=== PATIENT | female | born 1995 | race Caucasian/White ===

== ENCOUNTER 2018-10-11 20:39 | Emergency (ER) | payer BC, MEDICAID ==
[2018-10-11 20:44] VITALS: BP 110/72
--- NOTE | 2018-10-11 21:09 | EDM.PDOC ---
ED HPI GENERAL MEDICAL PROBLEM - General Chief Complaint: General Stated Complaint: POSS SEIZURE Time Seen by Provider: 10/11/18 20:49 Source of Information: Reports: Patient, RN Notes Reviewed History Limitations: Reports: No Limitations - History of Present Illness INITIAL COMMENTS - FREE TEXT/NARRATIVE: Medical records indicate that the patient is seen at the [facility] frequently , including, most recently, this past 10/08/2018, when she presented for vague abdominal pain. Her vitals were normal. Her abdomen was nontender on exam. Her WBC count was mildly elevated at 11.59, although a manual differential was not performed. Her CMP was normal. Her lipase was normal at 81. A urinalysis was contaminated, although interpreted as a UTI. CT of the abdomen and pelvis found a small amount of lymphadenopathy, possibly consistent with mesenteric adenitis, along with a few air-fluid levels. The patient was given 1 L of IV fluid, 30 mg of Toradol, and discharged home with a prescription for oral Keflex that the patient states she did not fill. The patient now presents to our ED stating that she developed lower abdominal cramps around 08:00. She states it feels like she is about to get her menstrual period. She then developed cramps in her chest around 20:30, and started shaking. She did not lose consciousness, but her boyfriend thought that she might of been having a seizure. The patient recalls her boyfriend and another friend talking to her and holding her. Symptoms lasted for about 10-15 minutes, and the patient showed no postictal symptoms. She states that she has had similar symptoms, every other month prior to getting her menstrual period since 2011 through 2012, although she still has the abdominal and chest cramps whenever she is about to get her menstrual period. The patient's PCP is at [facility] in [place]. 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: 1 Psychiatric History: Reports: Depression, PTSD Endocrine/Metabolic History: Reports: Hypothyroidism, Obesity/BMI 30+, Other ( See Below) (Prediabetes) Dermatologic History: Reports: Eczema - Past Surgical History HEENT Surgical History: Reports: Adenoidectomy, Tonsillectomy Cardiovascular Surgical History: Reports: Other (See Below) (VSD repair at 5 months old) Female Surgical History: Reports: Section (x 1), Other (See Below) ( Left salpingectomy) Social & Family History - Family History Family Medical History: Noncontributory HEENT: Reports: Glaucoma Cardiac: Reports: Heart Failure, Hypertension Respiratory: Reports: Asthma, COPD OBGYN: Reports: Other OBGYN Family History: mother had preeclampsia Neurological: Reports: CVA, Migraines Endocrine/Metabolic: Reports: Diabetes, type II, Hypothyroidism Oncologic: Reports: Breast - Tobacco Use Smoking Status *Q: Former Smoker Years of Tobacco use: 1 Packs/Tins Daily: 0.2 Month/Year Tobacco Last Used: Quit 2017 - Caffeine Use Caffeine Use: Reports: Coffee, Soda Caffeine Use Comment: rare - Alcohol Use Alcohol Use History: Yes Alcohol Use Frequency: Rarely - Recreational Drug Use Recreational Drug Use: Yes Drug Use in Last 12 Months: Yes Recreational Drug Type: Reports: Marijuana/Hashish (last smoked Mar 2018), Methamphetamine (last smoked 06/03/2016) Other Recreational Drug Type: in past about 1 yr 5 months-meth and marijuana. - Living Situation & Occupation Living situation: Reports: Single, Other (with friends) Occupation: Unemployed ED ROS GENERAL - Review of Systems Review Of Systems: ROS reveals no pertinent complaints other than HPI. ED EXAM, GENERAL - Physical Exam Exam: See Below Exam Limited By: No Limitations General Appearance: Alert, WD/WN, No Apparent Distress Eye Exam: Bilateral Eye: EOMI, Normal Inspection Ears: Normal External Exam, Hearing Grossly Normal Nose: Normal Inspection Throat/Mouth: Normal Inspection, Normal Lips, Normal Voice, No Airway Compromise Head: Atraumatic, Normocephalic Neck: Normal Inspection, Full Range of Motion Respiratory/Chest: No Respiratory Distress, Lungs Clear, Normal Breath Sounds, No Accessory Muscle Use Cardiovascular: Normal Peripheral Pulses, Regular Rate, Rhythm, No Gallop, No JVD, No Murmur, No Rub Peripheral Pulses: 4+: Radial (L), Radial (R) GI/Abdominal: Normal Bowel Sounds, Soft, Non-Tender, No Organomegaly, No Distention, No Abnormal Bruit, No Mass, Other (Obese) (Female) Exam: Deferred Rectal (Female) Exam: Deferred Back Exam: Normal Inspection, Full Range of Motion, NT Extremities: Normal Inspection, Normal Range of Motion, Non-Tender, Normal Capillary Refill, No Pedal Edema Neurological: Alert, Oriented, CN II-XII Intact, Normal Cognition, No Motor/ Sensory Deficits Psychiatric: Normal Affect Skin Exam: Warm, Dry, Intact, Normal Color, No Rash Course - Vital Signs Last Recorded V/S: Last Vital Signs Temp 36.5 C 10/11/18 20:43 Pulse 91 10/11/18 20:43 Resp 20 10/11/18 20:43 BP 110/72 10/11/18 20:43 Pulse Ox 98 10/11/18 20:43 Orthostatic Blood Pressure [ 121/77 Standing] Orthostatic Blood Pressure [ 118/84 Sitting] Orthostatic Blood Pressure [ 114/76 Supine] - Orders/Labs/Meds Orders: Active Orders 24 hr Category Date Time Status Orthostatic Vital Signs [RC] STAT Care 10/11/18 21:07 Active Labs: Laboratory Tests 10/11/18 10/11/18 Range/Units 21:24 21:24 Urine Color Dark yellow (Yellow) Urine Appearance Clear (Clear) Urine pH 6.5 (5.0-8.0) Ur Specific [place] > or = 1.030 (1.005-1.030) Urine Protein Trace H (Negative) Urine Glucose (UA) Negative (Negative) Urine Ketones Negative (Negative) Urine Occult Blood Trace-intact H (Negative) Urine Nitrite Negative (Negative) Urine Bilirubin Negative (Negative) Urine Urobilinogen 0.2 (0.2-1.0) Ur Leukocyte Esterase Negative (Negative) Urine RBC 0-5 (0-5) /hpf Urine WBC 0-5 (0-5) /hpf Ur Epithelial Cells 0-5 (0-5) /hpf Urine Bacteria Few (FEW) /hpf Hyaline Casts 0-5 (0-5) /lpf Urine Mucus Many H (FEW) /hpf Urine HCG, Qual Negative (NEGATIVE) - Re-Assessments/Exams Free Text/Narrative Re-Assessment/Exam: 10/11/18 21:08 Clearly, the patient did not suffer a seizure - she was awake and aware the entire time. For today's purposes, I have ordered orthostatics, to make sure that the symptoms that she experienced are not related to intravascular depletion, and since the urine sample from [place] on 10/08/2018 was contaminated, a UTI could not have been properly diagnosed, therefore I have ordered a urinalysis with a urine test. 10/11/18 21:25 The patient is not orthostatic. 10/11/18 22:44 Test results discussed with the patient and her boyfriend. The patient's urinalysis is clean - she does not have a urinary tract infection, and her urine test is negative. I explained that the patient's history is NOT consistent with that of a seizure, and if she gets these symptoms preceding a menstrual period, then it probably means that she is about to have her menstrual period. The patient asked what she can take for her pain, stating that she took 2 Aleve earlier tonight, then another Aleve an hour later = 3 Aleve within 2 hours I explained, and that her pain is getting worse. I explained that her pain is likely due to menstrual cramps, and that NSAIDs are recommended, however, not in the dose that she is taking. I explained that under the circumstances, I cannot prescribe opioid. Departure - Departure Time of Disposition: 22:45 Disposition: Home, Self-Care 01 Condition: Good Clinical Impression: Premenstrual symptom - Discharge Information *PRESCRIPTION DRUG MONITORING PROGRAM REVIEWED*: Not Applicable *COPY OF PRESCRIPTION DRUG MONITORING REPORT IN PATIENT CONRADO: Not Applicable Referrals: PCP,Not In Area [Primary Care Provider] - Forms: ED Department Discharge Additional Instructions: You were seen in the emergency room after developing lower abdominal cramps, followed by chest cramps, and an episode of shakiness. Workup in the ER included positional blood pressure checks, a urinalysis, and a urine test. All were normal. You did not have a seizure. You are not dehydrated. You do not have a urinary tract infection. You are not . Based on your history, physical exam, and ER tests, your symptoms tonight were likely due to premenstrual syndrome. We recommend that you take [id number] naproxen (Aleve), one tablet every 12 hours, as directed on the label, as needed for abdominal cramps. Do not take this medicine in excess of the recommended dose. Follow-up with your PCP at [facility] in [place], as needed. If any other problems, please do not hesitate to return to the ER. - My Orders Last 24 Hours: My Active Orders 10/11/18 21:07 Orthostatic Vital Signs [RC] STAT - Assessment/Plan Last 24 Hours: My Active Orders 10/11/18 21:07 Orthostatic Vital Signs [RC] STAT
== END 2018-10-11 23:01 | disposition home or self-care (01) ==
LOC: JD.ED 20:39
DX: N94.89 Other specified conditions associated with female genital organs and menstrual cycle (principal); J45.909 Unspecified asthma, uncomplicated; F32.9 Major depressive disorder, single episode, unspecified; E03.9 Hypothyroidism, unspecified; Z87.891 Personal history of nicotine dependence; Z88.8 Allergy status to other drugs, medicaments and biological substances; Z79.899 Other long term (current) drug therapy
CPT/HCPCS: 81001; 81025; 99282; 99283

== ENCOUNTER 2019-06-24 18:24 | Emergency (ER) | payer BC, MEDICAID ==
[2019-06-24 18:40] VITALS: BP 114/101; PULSE 90
[2019-06-24] MEDS ORDERED: FLU Vacc QS2019-20(6MOS+)/PF 60 MCG/0.5 ML SYRINGE IM ONE (19:00)
--- NOTE | 2019-06-24 20:20 | CR ---
Chest: Portable view of the chest was obtained. Comparison: No prior chest x-ray. Heart size is generous. Upper mediastinum is normal. Lungs are clear no acute parenchymal change. Bony structures are grossly intact. Impression: 1. Heart size slightly generous. Please correlate if patient has any underlying cardiac anomaly or murmur. 2. Nothing acute is otherwise seen on portable chest x-ray. Diagnostic code #3 Study was dictated in [place] Standard Time
--- NOTE | 2019-06-24 20:42 | EDM.PDOC ---
ED HPI GENERAL MEDICAL PROBLEM - General Chief Complaint: Chest Pain Stated Complaint: CHEST PAIN Time Seen by Provider: 06/24/19 18:57 Source of Information: Reports: Patient, RN Notes Reviewed - History of Present Illness INITIAL COMMENTS - FREE TEXT/NARRATIVE: 23-year-old female comes in with upper abdominal discomfort that does radiate up into chest. This is been going on for a couple of weeks but a bit more bothersome yesterday and today. the pain is sharp and also pressure type sensation upper abdomen primarily. Appetite is off, not eating or drinking as much as usual. Vomiting or diarrhea. No fever or chills. She still does have her gallbladder and appendix. No lower abd pain or cramping. She is not currently coughing or having difficulty breathing at time of exam. Chest Pain Score (Numeric/FACES): 9 - Related Data Allergies Allergy/AdvReac Type Severity Reaction Status Date / Time methylprednisolone Allergy Difficulty Verified 06/24/19 18:40 Breathing Home Meds: Home Meds Levothyroxine [Synthroid] 50 mcg PO DAILY 10/21/17 [History] hydrOXYzine HCL [hydrOXYzine] 25 mg PO BID PRN 11/26/18 [History] Escitalopram Oxalate 20 mg PO DAILY 06/24/19 [History] Sertraline [Zoloft] 25 mg PO DAILY 06/24/19 [History] Past Medical History - Past Health History Medical/Surgical History: Denies Medical/Surgical History HEENT History: Reports: None Cardiovascular History: Reports: Heart Murmur, Other (See Below) Other Cardiovascular History: born with VSD-heart block Respiratory History: Reports: Asthma Other Respiratory History: uses rescue inhaler Gastrointestinal History: Reports: None Genitourinary History: Reports: None 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 History: Reports: None Neurological History: Reports: None Psychiatric History: Reports: Anxiety, Depression, PTSD Endocrine/Metabolic History: Reports: Hypothyroidism, Obesity/BMI 30+, Other ( See Below) Other Endocrine/Metabolic History: borderline diabetes Hematologic History: Reports: None Immunologic History: Reports: None Oncologic (Cancer) History: Reports: None Dermatologic History: Reports: Eczema - Infectious Disease History Infectious Disease History: Reports: None - Past Surgical History Head Surgeries/Procedures: Reports: None HEENT Surgical History: Reports: Adenoidectomy, Tonsillectomy Cardiovascular Surgical History: Reports: Other (See Below) Female Surgical History: Reports: Section, Other (See Below) Social & Family History - Family History Family Medical History: Noncontributory HEENT: Reports: Glaucoma Cardiac: Reports: Heart Failure, Hypertension Respiratory: Reports: Asthma, COPD OBGYN: Reports: Other OBGYN Family History: mother had preeclampsia Neurological: Reports: CVA, Migraines Endocrine/Metabolic: Reports: Diabetes, type II, Hypothyroidism Oncologic: Reports: Breast - Tobacco Use Smoking Status *Q: Never Smoker - Caffeine Use Caffeine Use: Reports: Soda Caffeine Use Comment: rare - Recreational Drug Use Recreational Drug Use: No - Living Situation & Occupation Living situation: Reports: Single, Other (with friends) Occupation: Unemployed ED ROS GENERAL - Review of Systems Review Of Systems: See Below Constitutional: Denies: Fever, Chills HEENT: Denies: Throat Pain Respiratory: Denies: Shortness of Breath, Cough Cardiovascular: Reports: Chest Pain (She does feel mild discomfort with deep inspiration) GI/Abdominal: Reports: Abdominal Pain, Decreased Appetite. Denies: Diarrhea, Vomiting Musculoskeletal: Denies: Back Pain Skin: Reports: No Symptoms Neurological: Reports: No Symptoms ED EXAM, NEURO - Physical Exam Exam: See Below General Appearance: Alert, No Apparent Distress Eye Exam: Bilateral Eye: PERRL Throat/Mouth: Normal Inspection, Normal Oropharynx Head Exam: Atraumatic Neck: Supple Respiratory/Chest: No Respiratory Distress, Lungs Clear, Normal Breath Sounds Cardiovascular: Regular Rate, Rhythm GI/Abdominal: Soft, Tender (Mild tenderness upper mid abdomen, lower abdomen soft and nontender). No: Guarding, Rebound Neurological: Alert, No Motor/Sensory Deficits Extremities: Normal Inspection, Normal Range of Motion Skin Exam: Warm, Dry, Normal Color Course - Vital Signs Last Recorded V/S: Last Vital Signs Temp 97.7 F 06/24/19 18:37 Pulse 90 06/24/19 18:37 Resp 20 06/24/19 18:37 BP 114/101 H 06/24/19 18:37 Pulse Ox 93 L 06/24/19 18:37 - Orders/Labs/Meds Orders: Active Orders 24 hr Category Date Time Status EKG Documentation Completion [RC] ASDIRECTED Care 06/24/19 18:55 Active Influenza Vaccine Charge [RC] .DISCHARGE Care 06/24/19 18:44 Active EKG 12 Lead [EK] Stat Ther 06/24/19 18:55 Ordered Labs: Laboratory Tests 06/24/19 06/24/19 Range/Units 19:14 19:14 WBC 9.52 (3.98-10.04) K/mm3 RBC 4.93 (3.98-5.22) M/mm3 Hgb 13.9 (11.2-15.7) gm/dl Hct 43.1 (34.1-44.9) % MCV 87.4 (79.4-94.8) fl MCH 28.2 (25.6-32.2) pg MCHC 32.3 (32.2-35.5) g/dl RDW Std Deviation 44.5 (36.4-46.3) fL Plt Count 319 (182-369) K/mm3 MPV 9.8 (9.4-12.3) fl Neutrophils % (Manual) 52 (40-60) % Band Neutrophils % 0 (0-10) % Lymphocytes % (Manual) 45 H (20-40) % Atypical Lymphs % 0 % Monocytes % (Manual) 1 L (2-10) % Eosinophils % (Manual) 1 (0.7-5.8) % Basophils % (Manual) 1 (0.1-1.2) Platelet Estimate Adequate RBC Morph Comment Normal Sodium 139 (136-145) mEq/L Potassium 3.8 (3.5-5.1) mEq/L Chloride 105 (98-107) mEq/L Carbon Dioxide 24 (21-32) mEq/L Anion Gap 13.8 (5-15) BUN 9 (7-18) mg/dL Creatinine 0.7 (0.55-1.02) mg/dL Est Cr Clr Drug Dosing 90.55 mL/min Estimated GFR (MDRD) > 60 (>60) mL/min BUN/Creatinine Ratio 12.9 L (14-18) Glucose 95 (74-106) mg/dL Calcium 9.1 (8.5-10.1) mg/dL Total Bilirubin 0.2 (0.2-1.0) mg/dL AST 13 L (15-37) U/L ALT 31 (14-59) U/L Alkaline Phosphatase 88 (46-116) U/L Troponin I < 0.017 (0.00-0.056) ng/mL Total Protein 7.9 (6.4-8.2) g/dl Albumin 3.6 (3.4-5.0) g/dl Globulin 4.3 gm/dL Albumin/Globulin Ratio 0.8 L (1-2) Meds: Medications Discontinued Medications Generic Name Dose Route Start Last Admin Trade Name Freq PRN Reason Stop Dose Admin Influenza Virus Vaccine 1 each 06/24/19 18:44 Pharmacy To Dose - Influenza Vaccine IM 06/24/19 18:45 ONETIME ONE Influenza Virus Vaccine 60 mcg 06/24/19 19:00 06/24/19 19:36 Fluzone Quad Syringe IM 06/24/19 19:01 Not Given .ONCE ONE - Re-Assessments/Exams Free Text/Narrative Re-Assessment/Exam: 06/24/19 21:45 Labs came back quite normal, chest x-ray showed very slight cardiomegaly, EKG shows sinus rhythm, right bundle branch block pattern patient states that she has been told previously that she does have an "abnormality of her EKG". case monitor continued to show sinus rhythm no ectopy. Discharge instructions as documented. 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 See one of our medical providers at our [facility] medical clinic for follow-up in about 3-5 days, call [phone] for appointment. Sepsis Event Note - Evaluation Sepsis Screening Result: No Definite Risk - Focused Exam Vital Signs: Vital Signs Temp Pulse Resp BP Pulse Ox 06/24/19 18:37 97.7 F 90 20 114/101 H 93 L Date Exam was Performed: 06/24/19 Time Exam was Performed: 21:42 - My Orders Last 24 Hours: My Active Orders 06/24/19 18:44 Influenza Vaccine Charge [RC] .DISCHARGE 06/24/19 18:55 EKG Documentation Completion [RC] ASDIRECTED EKG 12 Lead [EK] Stat - Assessment/Plan Last 24 Hours: My Active Orders 06/24/19 18:44 Influenza Vaccine Charge [RC] .DISCHARGE 06/24/19 18:55 EKG Documentation Completion [RC] ASDIRECTED EKG 12 Lead [EK] Stat
== END 2019-06-24 20:49 | disposition home or self-care (01) ==
LOC: JD.ED 18:24
DX: R07.89 Other chest pain (principal); R10.10 Upper abdominal pain, unspecified; F41.9 Anxiety disorder, unspecified; F32.9 Major depressive disorder, single episode, unspecified; E03.9 Hypothyroidism, unspecified; E66.9 Obesity, unspecified; Z68.36 Body mass index [BMI] 36.0-36.9, adult; Z88.8 Allergy status to other drugs, medicaments and biological substances; Z79.890 Hormone replacement therapy; Z79.899 Other long term (current) drug therapy
CPT/HCPCS: 36415; 71045; 71045-26; 80053; 84484; 85007; 85027; 93005; 93010; 99283; 99285-25

== ENCOUNTER 2019-07-11 12:27 | Emergency (ER) | payer MEDICAID ==
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
[2019-07-11] MEDS ORDERED: Alum Hydrox/Mag Hydrox/Simeth 30 ML, Lidocaine 2% 15 ML PO ONE ×2 (13:29)
--- NOTE | 2019-07-11 14:48 | CR ---
Chest: Two views of the chest were obtained. Comparison: Previous chest x-ray of 06/24/19. Heart size is slightly generous. Upper mediastinum is normal. Lungs are clear with no acute parenchymal change. Bony structures appear within normal limits. Impression: 1. Heart size at the upper limits of normal. 2. Nothing acute is otherwise seen on two-view chest x-ray. Diagnostic code #2 Study was dictated in [place] Standard Time
[2019-07-11] MEDS ORDERED: Ondansetron 4 MG Tab.DIS PO ONE (14:49)
[2019-07-11] MEDS ORDERED: Ketorolac 60 MG/2 ML SDV IM ONE (14:49)
[2019-07-11 15:26] VITALS: BP 115/79; PULSE 90
== END 2019-07-11 15:21 | disposition home or self-care (01) ==
LOC: JD.ED 12:27
DX: R07.9 Chest pain, unspecified (principal); F41.9 Anxiety disorder, unspecified; F32.9 Major depressive disorder, single episode, unspecified; E03.9 Hypothyroidism, unspecified; E66.9 Obesity, unspecified; Z68.35 Body mass index [BMI] 35.0-35.9, adult; Z88.8 Allergy status to other drugs, medicaments and biological substances; Z79.890 Hormone replacement therapy; Z79.899 Other long term (current) drug therapy
CPT/HCPCS: 36415; 71046; 80053; 81001; 83690; 83735; 84484; 85025; 93005; 96372; 99285; A9270; J1885; 93010; 99284

== ENCOUNTER 2019-07-14 00:32 | Emergency (ER) | payer MEDICAID ==
[2019-07-14 00:44] VITALS: BP 105/76; PULSE 112
[2019-07-14] MEDS ORDERED: Alum Hydrox/Mag Hydrox/Simeth 30 ML, Lidocaine 2% 15 ML PO STA ×2 (01:38)
--- NOTE | 2019-07-14 01:43 | EDM.PDOC ---
ED HPI GENERAL MEDICAL PROBLEM - General Chief Complaint: Chest Pain Stated Complaint: CHEST PAIN SOB Time Seen by Provider: 07/14/19 00:43 Source of Information: Reports: Patient, Significant Other (Boyfriend) History Limitations: Reports: No Limitations - History of Present Illness INITIAL COMMENTS - FREE TEXT/NARRATIVE: Ms. Simms is a pleasant 23-year-old woman with a past medical history significant for a congenital VSD, repaired as a child, PFT-confirmed asthma, anxiety, depression, hypothyroidism, and likely GERD, who, medical records indicate, was seen in this on 06/24/2019 with epigastric pain radiating up to her chest that she stated had been going on for 2 weeks. She was found to have mild tenderness to her upper abdomen, otherwise, her examination was benign. Her work-up was unremarkable. She was diagnosed with GERD, and a recommendation was made that she take [id number] famotidine twice a day for 2 weeks, then follow-up in the clinic. The patient then returned to the ED this past 07/11/2019 with a complaint of 2 to 3 weeks of chest pain felt behind her sternum and in her left chest, 10/10 in severity. Her pain was made worse if she ate, moved, or took a deep breath. She had associated dyspnea and lightheadedness. Again her work- up was unremarkable. She was diagnosed with nonspecific chest pain and prescribed Zofran. A recommendation was made that she take [id number] omeprazole. An appointment was made for her to follow-up in the clinic this coming Tuesday. The patient now returns to the ED stating that she has had midsternal chest pain for the past 2 to 3 weeks and palpitations since 20:00 this evening. She states that she took Tylenol which did not help. She also took a 3 Anacin, which contains caffeine, and drank some energy drinks. She describes the chest pain as similar to her previous chest pain, but more pressure and pounding than previously. She states that she has felt shaky. She has had hot flashes and chills. The patient denies recent illness such as fever, cough, nausea, vomiting, constipation, diarrhea, abdominal pain, urinary symptoms, recent weight gain or weight loss, recent bloody bowel movements or black bowel movements, recent joint aches, headaches, or rashes. The patient has an appointment to meet Jenniffer Bobby NP, this coming Tuesday, 07/16 at 8:30 AM. Her Home Office Claims Examiner is Dr. Daniel Olvera. She has an appointment to see him on . She received an influenza vaccine this season. Mid-Sternal Chest Pain Score (Numeric/FACES): 10 - Related Data Allergies Allergy/AdvReac Type Severity Reaction Status Date / Time methylprednisolone Allergy Difficulty Verified 07/14/19 00:44 Breathing Home Meds: Home Meds Levothyroxine [Synthroid] 50 mcg PO DAILY 10/21/17 [History] Escitalopram Oxalate 20 mg PO DAILY 06/24/19 [History] Ondansetron [Zofran ODT] 4 mg PO Q6H PRN #10 tab.dis 07/11/19 [Rx] Past Medical History Cardiovascular History: Reports: Other (See Below) (Congenital VSD, repaired as an . RBBB.) Respiratory History: Reports: Asthma (PFT-confirmed) Psychiatric History: Reports: Depression, PTSD Endocrine/Metabolic History: Reports: Hypothyroidism, Obesity/BMI 30+, Other ( See Below) (Prediabetes) Dermatologic History: Reports: Eczema - Past Surgical History HEENT Surgical History: Reports: Adenoidectomy, Tonsillectomy Cardiovascular Surgical History: Reports: Other (See Below) (VSD repair at 5 months old) Female Surgical History: Reports: Section (x 1), Other (See Below) ( Left salpingectomy) Social & Family History - Family History Family Medical History: Noncontributory HEENT: Reports: Glaucoma Cardiac: Reports: Heart Failure, Hypertension Respiratory: Reports: Asthma, COPD OBGYN: Reports: Other OBGYN Family History: mother had preeclampsia Neurological: Reports: CVA, Migraines Endocrine/Metabolic: Reports: Diabetes, type II, Hypothyroidism Oncologic: Reports: Breast - Tobacco Use Smoking Status *Q: Former Smoker Years of Tobacco use: 1 Packs/Tins Daily: 0.2 Month/Year Tobacco Last Used: Quit 2018 - Caffeine Use Caffeine Use: Reports: Energy Drinks, Soda Caffeine Use Comment: rare - Alcohol Use Alcohol Use History: Yes Alcohol Use Frequency: Rarely - Recreational Drug Use Recreational Drug Use: Yes Drug Use in Last 12 Months: No Recreational Drug Type: Reports: Marijuana/Hashish (last smoked Mar 2018), Methamphetamine (last smoked 06/03/2016) - Living Situation & Occupation Living situation: Reports: Single, Other (with friends) Occupation: Unemployed ED ROS GENERAL - Review of Systems Review Of Systems: Comprehensive ROS is negative, except as noted in HPI. ED EXAM, GENERAL - Physical Exam Exam: See Below Exam Limited By: No Limitations General Appearance: Alert, WD/WN, No Apparent Distress Eye Exam: Bilateral Eye: EOMI, Normal Inspection Ears: Normal External Exam, Hearing Grossly Normal Nose: Normal Inspection Throat/Mouth: Normal Inspection, Normal Lips, Normal Voice, No Airway Compromise Head: Atraumatic, Normocephalic Neck: Normal Inspection, Full Range of Motion Respiratory/Chest: No Respiratory Distress, Lungs Clear, Normal Breath Sounds, No Accessory Muscle Use, Other (The patient jumps/jerks with palpation virtually anywhere). No: Decreased Breath Sounds, Crackles, Rhonchi, Wheezing, Stridor, Prolonged Expiration Cardiovascular: Normal Peripheral Pulses, Regular Rate, Rhythm, No Edema, No Gallop, No JVD, No Murmur, No Rub Peripheral Pulses: 4+: Radial (L), Radial (R) GI/Abdominal: Normal Bowel Sounds, Soft, No Organomegaly, No Distention, No Abnormal Bruit, No Mass, Tender (The patient jumps/jerks with palpation virtually anywhere) (Female) Exam: Deferred Rectal (Female) Exam: Deferred Back Exam: Normal Inspection, Full Range of Motion, NT Extremities: Normal Inspection, Normal Range of Motion, No Pedal Edema, Normal Capillary Refill Neurological: Alert, Oriented, No Motor/Sensory Deficits Psychiatric: Flat Affect Skin Exam: Warm, Dry, Intact, Normal Color, No Rash EKG INTERPRETATION EKG Date: 07/14/19 Time: 01:46 Rhythm: NSR Rate (Beats/Min): 90 [place]: Normal P-Wave: Present QRS: RBBB (Early transition) ST-T: Normal QT: Prolonged (QTc 481 ms) Comparison: No Change (07/11/2019) Course - Vital Signs Last Recorded V/S: Last Vital Signs Temp 36.1 C 07/14/19 00:40 Pulse 112 H 07/14/19 00:40 Resp 42 H 07/14/19 00:40 BP 105/76 07/14/19 00:40 Pulse Ox 97 07/14/19 00:40 - Orders/Labs/Meds Orders: Active Orders 24 hr Category Date Time Status EKG Documentation Completion [RC] STAT Care 07/14/19 01:36 Active Chest 2V [CR] Stat Exams 07/14/19 01:36 Taken Labs: Laboratory Tests 07/14/19 07/14/19 07/14/19 Range/Units 02:10 02:10 02:10 WBC 12.57 H (3.98-10.04) K/mm3 RBC 4.57 (3.98-5.22) M/mm3 Hgb 13.0 (11.2-15.7) gm/dl Hct 40.5 (34.1-44.9) % MCV 88.6 (79.4-94.8) fl MCH 28.4 (25.6-32.2) pg MCHC 32.1 L (32.2-35.5) g/dl RDW Std Deviation 44.4 (36.4-46.3) fL Plt Count 286 (182-369) K/mm3 MPV 10.5 (9.4-12.3) fl Neutrophils % (Manual) 58 (40-60) % Band Neutrophils % 0 (0-10) % Lymphocytes % (Manual) 34 (20-40) % Atypical Lymphs % 0 % Monocytes % (Manual) 5 (2-10) % Eosinophils % (Manual) 1 (0.7-5.8) % Basophils % (Manual) 2 H (0.1-1.2) Platelet Estimate Adequate RBC Morph Comment Normal D-Dimer, Quantitative 0.39 (0.19-0.50) mg/L Sodium 143 (136-145) mEq/L Potassium 3.6 (3.5-5.1) mEq/L Chloride 107 (98-107) mEq/L Carbon Dioxide 22 (21-32) mEq/L Anion Gap 17.6 H (5-15) BUN 12 (7-18) mg/dL Creatinine 0.8 (0.55-1.02) mg/dL Est Cr Clr Drug Dosing 99.25 mL/min Estimated GFR (MDRD) > 60 (>60) mL/min BUN/Creatinine Ratio 15.0 (14-18) Glucose 94 (74-106) mg/dL Calcium 9.4 (8.5-10.1) mg/dL Magnesium 1.9 (1.8-2.4) mg/dl Total Bilirubin 0.2 (0.2-1.0) mg/dL AST 10 L (15-37) U/L ALT 25 (14-59) U/L Alkaline Phosphatase 77 (46-116) U/L Troponin I < 0.017 (0.00-0.056) ng/mL C-Reactive Protein 1.2 H* (<1.0) mg/dL Total Protein 7.6 (6.4-8.2) g/dl Albumin 3.6 (3.4-5.0) g/dl Globulin 4.0 gm/dL Albumin/Globulin Ratio 0.9 L (1-2) Lipase 124 (73-393) U/L TSH 3rd Generation 8.575 H (0.358-3.74) uIU/mL Meds: Medications Discontinued Medications Generic Name Dose Route Start Last Admin Trade Name Freq PRN Reason Stop Dose Admin Al Hydroxide/Mg Hydroxide 30 0 ml 07/14/19 01:38 07/14/19 01:50 ml/ Lidocaine HCl 15 ml PO 07/14/19 01:39 45 ml ONETIME STA Administration - Re-Assessments/Exams Free Text/Narrative Re-Assessment/Exam: 07/14/19 01:39 The patient was told on 07/11/2019 that her ECG reflects an incomplete right bundle branch block, however, the patient is telling me today that she was told that she has a blockage of some artery or another in her heart, they are not sure which one. I am not sure if the patient quite understands what a bundle branch block is, and whether or not that misunderstanding may play a role in her repeated presentations to the ED for the same or similar complaints. I suspect that the majority of the patient's symptoms are due to GERD and anxiety. I am anticipating that today's work-up will be unremarkable. In the meantime, the patient will be given a GI cocktail. 07/14/19 02:55 Two-view chest radiograph reviewed. The cardiac silhouette is at the upper limits of normal. No pulmonary vascular congestion. No pleural effusions. No focal infiltrate. No pneumothorax. Formal read per the Radiologist pending. The patient CBC is remarkable for a WBC count mildly elevated at 12.57, but with 0% bandemia. The remainder of her CBC is unremarkable. Her CMP is remarkable for an anion gap mildly elevated at 17.6, but with a bicarbonate normal at 22, and the remainder of her CMP is unremarkable. Her magnesium level is within normal limits at 1.9. Her troponin is undetectably low. Her lipase is within normal limits at 124. Her TSH is significantly elevated at 8.575. Her CRP is slightly elevated at 1.2. Her D-dimer is within normal limits at 0.39. 07/14/19 03:08 Test results discussed with the patient and her boyfriend. I explained to the patient that her right bundle branch block is likely chronic, probably since , since she was born with a VSD. I explained that a right bundle branch block does not cause any pain, and, further, that her chest pain is not cardiac. I believe her pain is likely due to GERD, therefore I recommended that she increase her famotidine to 1 tablet twice a day. The patient will be following up with her clinical registered nurse, Dr. Olvera, on 07/24/2019, and I encouraged her to ask him about her chest pain and heart condition. With respect to the patient's elevated TSH, the patient acknowledged that she has not taken her levothyroxine for about 1 month, citing financial issues. Similarly, the patient has not taken her escitalopram for about 3 weeks. She will be following up with Ms. Bobby this coming 07/16/2019, at which time they can address that issue. Departure - Departure Time of Disposition: 03:10 Disposition: Home, Self-Care 01 Condition: Good Clinical Impression: GERD (gastroesophageal reflux disease), Right bundle branch block, Hypothyroidism - Discharge Information *PRESCRIPTION DRUG MONITORING PROGRAM REVIEWED*: Not Applicable *COPY OF PRESCRIPTION DRUG MONITORING REPORT IN PATIENT CONRADO: Not Applicable Referrals: Jenniffer Bobby NP [Nurse Practitioner] - Daniel Olvera DO [Ordering Only Provider] - Forms: ED Department Discharge Additional Instructions: You were seen in the emergency room for recurrent midsternal chest pain and palpitations. Work-up in the ER included blood work, a chest x-ray, and an ECG. Your work-up found your TSH level to be significantly elevated, due to your not taking levothyroxine. Your work-up redemonstrated a right bundle branch block, which, as explained, is an electrical issue, and has nothing to do with a heart attack. You were likely born with a right bundle branch block, due to your VSD. The remainder of your work-up was unremarkable. You have not suffered a heart attack. You do not have a blood clot in your lungs. You do not have pancreatitis. You do not have pneumonia. You are not anemic. Based on your history, physical exam, and ER tests, the cause of your chest pain is most likely due to GERD = acid reflux. As discussed, we cannot prove that you have GERD from the emergency department, however, we recommend that you increase your famotidine (Pepcid) to 1 tablet twice a day. Follow-up with your PCP, Johanny Bobby NP, at your previously scheduled appointment this coming 07/16/2019 at 8:30 AM. At your meeting with Ms. Bobby, make sure that you get new prescriptions for your levothyroxine and escitalopram (Lexapro). Follow-up with your Home Office Claims Examiner, Dr. Daniel Olvera, at your previously scheduled appointment on 07/24/2019. At that appointment, have him explain particular heart condition. If any other problems, please do not hesitate to return to the ER. Sepsis Event Note - Evaluation Sepsis Screening Result: No Definite Risk - Focused Exam Vital Signs: Vital Signs Temp Pulse Resp BP Pulse Ox 07/14/19 00:40 36.1 C 112 H 42 H 105/76 97 Date Exam was Performed: 07/14/19 Time Exam was Performed: 03:07 - My Orders Last 24 Hours: My Active Orders 07/14/19 01:36 EKG Documentation Completion [RC] STAT Chest 2V [CR] Stat - Assessment/Plan Last 24 Hours: My Active Orders 07/14/19 01:36 EKG Documentation Completion [RC] STAT Chest 2V [CR] Stat
--- NOTE | 2019-07-14 17:09 | CR ---
Chest: Two views of the chest were obtained. Comparison: Prior chest x-ray of 07/11/19. Heart size and mediastinum are within normal limits. Lungs are clear with no acute parenchymal change. Bony structures appear within normal limits for the patient's age. Impression: 1. Nothing acute is seen on two-view chest x-ray. Diagnostic code #1 This report was dictated in [place] Standard Time
== END 2019-07-14 03:25 | disposition home or self-care (01) ==
LOC: JD.ED 00:32
DX: K21.9 Gastro-esophageal reflux disease without esophagitis (principal); I45.10 Unspecified right bundle-branch block; E03.9 Hypothyroidism, unspecified; E66.9 Obesity, unspecified; Z68.30 Body mass index [BMI] 30.0-30.9, adult; Z88.8 Allergy status to other drugs, medicaments and biological substances; Z79.890 Hormone replacement therapy; F32.9 Major depressive disorder, single episode, unspecified; F41.9 Anxiety disorder, unspecified; Z79.899 Other long term (current) drug therapy; Z87.891 Personal history of nicotine dependence
CPT/HCPCS: 36415; 71046; 80053; 83690; 83735; 84443; 84484; 85007; 85027; 85379; 86140; 93005; 99285; A9270; 93010; 99283

== ENCOUNTER 2019-07-21 20:17 | Emergency (ER) | payer MEDICAID ==
[2019-07-21] MEDS ORDERED: Sodium Chloride 0.9% 10 ML Syringe FLUSH PRN (21:10)
[2019-07-21] MEDS ORDERED: Sodium Chloride 0.9% 1,000 ML IV ONE (21:10)
[2019-07-21 21:34] VITALS: BP 90/69; PULSE 98
--- NOTE | 2019-07-21 22:05 | EDM.PDOC ---
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 Reports she has had a menstrual cycle for the last 21 days. She has not yet seen anyone for this. She has had problems with her menstrual cycle for years. States this is the first menstrual cycle since december. Denies any chance of . States today at work she felt lightheaded and had a syncopal episode. Reports she soaked through at least 5 pads in 6 hours today. Denies any abdominal pain, cramping or any back pain. No urinary symptoms. No history of PCOS, endometrosis , etc. Reports she had a left salpingectomy due to a cyst. Right Leg Pain Score (Numeric/FACES): 5 - Related Data Allergies Allergy/AdvReac Type Severity Reaction Status Date / Time methylprednisolone Allergy Difficulty Verified 07/14/19 00:44 Breathing Home Meds: Home Meds Levothyroxine [Synthroid] 50 mcg PO DAILY 10/21/17 [History] Escitalopram Oxalate 20 mg PO DAILY 06/24/19 [History] Ondansetron [Zofran ODT] 4 mg PO Q6H PRN #10 tab.dis 07/11/19 [Rx] medroxyPROGESTERone Acetate [Depo-Provera] 1 injection INJECT Q3M 07/21/19 [ History] Past Medical History - Past Health History Medical/Surgical History: Denies Medical/Surgical History HEENT History: Reports: None Cardiovascular History: Reports: Other (See Below) Other Cardiovascular History: born with VSD. 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: Musculoskeletal History: Reports: None Neurological History: Reports: None Psychiatric History: Reports: Depression, PTSD Endocrine/Metabolic History: Reports: Hypothyroidism, Obesity/BMI 30+, Other ( See Below) Other Endocrine/Metabolic History: borderline diabetes Hematologic History: Reports: None Immunologic History: Reports: None Oncologic (Cancer) History: Reports: None Dermatologic History: Reports: Eczema - Infectious Disease History Infectious Disease History: Reports: None - Past Surgical History Head Surgeries/Procedures: Reports: None HEENT Surgical History: Reports: Adenoidectomy, Tonsillectomy Cardiovascular Surgical History: Reports: Other (See Below) Female Surgical History: Reports: Section, Other (See Below) Social & Family History - Family History Family Medical History: Noncontributory HEENT: Reports: Glaucoma Cardiac: Reports: Heart Failure, Hypertension Respiratory: Reports: Asthma, COPD OBGYN: Reports: Other OBGYN Family History: mother had preeclampsia Neurological: Reports: CVA, Migraines Endocrine/Metabolic: Reports: Diabetes, type II, Hypothyroidism Oncologic: Reports: Breast - Tobacco Use Smoking Status *Q: Current Every Day Smoker Years of Tobacco use: 1 Packs/Tins Daily: 0.5 - Caffeine Use Caffeine Use: Reports: Energy Drinks, Tea Caffeine Use Comment: rare - Recreational Drug Use Recreational Drug Use: No - Living Situation & Occupation Living situation: Reports: Single, Other (with friends) Occupation: Unemployed ED ROS GENERAL - Review of Systems Review Of Systems: See Below Cardiovascular: Reports: Lightheadedness, Syncope GI/Abdominal: Denies: Abdominal Pain : Reports: Irregular Menses, Other (menorrhagia). Denies: Dysuria Musculoskeletal: Denies: Back Pain Neurological: Reports: Syncope ED EXAM, GI/ABD - Physical Exam Exam: See Below Exam Limited By: No Limitations General Appearance: Alert, WD/WN, No Apparent Distress, Obese Respiratory/Chest: No Respiratory Distress, Lungs Clear, Normal Breath Sounds Cardiovascular: Normal Peripheral Pulses, Regular Rate, Rhythm, No Murmur GI/Abdominal Exam: Normal Bowel Sounds, Soft, Non-Tender (Female) Exam: Other (scan blood in the vagina, closed cervical os) Back Exam: Normal Inspection. No: CVA Tenderness (L), CVA Tenderness (R) Neurological: Alert, Oriented, Normal Cognition Psychiatric: Normal Affect, Normal Mood Skin Exam: Warm, Dry, Normal Color Course - Vital Signs Last Recorded V/S: Last Vital Signs Temp 99.0 F 07/21/19 20:27 Pulse 98 07/21/19 20:27 Resp 20 07/21/19 20:27 BP 90/69 07/21/19 20:27 Pulse Ox 99 07/21/19 20:27 Orthostatic Blood Pressure [ 104/76 Sitting] Orthostatic Blood Pressure [ 113/77 Standing] Orthostatic Blood Pressure [ 100/68 Supine] - Orders/Labs/Meds Orders: Active Orders 24 hr Category Date Time Status Cardiac Monitoring [RC] . DIRECTED Care 07/21/19 21:10 Active Orthostatic Vital Signs [RC] ASDIRECTED Care 07/21/19 21:11 Active Pelvic Exam, Set Up [RC] ASDIRECTED Care 07/21/19 21:32 Active Peripheral IV Care [RC] . DIRECTED Care 07/21/19 21:10 Active Sodium Chloride 0.9% [Saline Flush] Med 07/21/19 21:10 Active 10 ml FLUSH ASDIRECTED PRN Peripheral IV Insertion Adult [OM.PC] Routine Oth 07/21/19 21:10 Ordered Medication Orders Sodium Chloride (Saline Flush) 10 ml FLUSH ASDIRECTED PRN PRN Reason: Keep Vein Open Last Admin: 07/21/19 21:48 Dose: 10 ml Labs: Laboratory Tests 07/21/19 07/21/19 07/21/19 Range/Units 21:25 21:25 21:25 WBC 10.90 H (3.98-10.04) K/mm3 RBC 4.32 (3.98-5.22) M/mm3 Hgb 12.4 (11.2-15.7) gm/dl Hct 39.1 (34.1-44.9) % MCV 90.5 (79.4-94.8) fl MCH 28.7 (25.6-32.2) pg MCHC 31.7 L (32.2-35.5) g/dl RDW Std Deviation 44.8 (36.4-46.3) fL Plt Count 325 (182-369) K/mm3 MPV 10.3 (9.4-12.3) fl Neut % (Auto) 61.6 (34.0-71.1) % Lymph % (Auto) 29.4 (19.3-51.7) % [place] % (Auto) 6.8 (4.7-12.5) % Eos % (Auto) 1.4 (0.7-5.8) Baso % (Auto) 0.2 (0.1-1.2) % Neut # (Auto) 6.73 H (1.56-6.13) K/mm3 Lymph # (Auto) 3.20 (1.18-3.74) K/mm3 [place] # (Auto) 0.74 H (0.24-0.36) K/mm3 Eos # (Auto) 0.15 (0.04-0.36) K/mm3 Baso # (Auto) 0.02 (0.01-0.08) K/mm3 Sodium 143 (136-145) mEq/L Potassium 3.5 (3.5-5.1) mEq/L Chloride 106 (98-107) mEq/L Carbon Dioxide 23 (21-32) mEq/L Anion Gap 17.5 H (5-15) BUN 11 (7-18) mg/dL Creatinine 0.7 (0.55-1.02) mg/dL Est Cr Clr Drug Dosing 90.55 mL/min Estimated GFR (MDRD) > 60 (>60) mL/min BUN/Creatinine Ratio 15.7 (14-18) Glucose 103 (74-106) mg/dL Calcium 9.1 (8.5-10.1) mg/dL Total Bilirubin 0.2 (0.2-1.0) mg/dL AST 13 L (15-37) U/L ALT 29 (14-59) U/L Alkaline Phosphatase 78 (46-116) U/L Total Protein 7.5 (6.4-8.2) g/dl Albumin 3.6 (3.4-5.0) g/dl Globulin 3.9 gm/dL Albumin/Globulin Ratio 0.9 L (1-2) HCG, Qual Negative (NEGATIVE) Urine Color (Yellow) Urine Appearance (Clear) Urine pH (5.0-8.0) Ur Specific [place] (1.005-1.030) Urine Protein (Negative) Urine Glucose (UA) (Negative) Urine Ketones (Negative) Urine Occult Blood (Negative) Urine Nitrite (Negative) Urine Bilirubin (Negative) Urine Urobilinogen (0.2-1.0) Ur Leukocyte Esterase (Negative) U Hyaline Cast (Auto) (0-5) /lpf Urine RBC (0-5) /hpf Urine WBC (0-5) /hpf Ur Squamous Epith Cells (0-5) /hpf Urine Bacteria (FEW) /hpf Urine Mucus (FEW) /hpf 02/29/20 Range/Units 22:28 WBC (3.98-10.04) K/mm3 RBC (3.98-5.22) M/mm3 Hgb (11.2-15.7) gm/dl Hct (34.1-44.9) % MCV (79.4-94.8) fl MCH (25.6-32.2) pg MCHC (32.2-35.5) g/dl RDW Std Deviation (36.4-46.3) fL Plt Count (182-369) K/mm3 MPV (9.4-12.3) fl Neut % (Auto) (34.0-71.1) % Lymph % (Auto) (19.3-51.7) % [place] % (Auto) (4.7-12.5) % Eos % (Auto) (0.7-5.8) Baso % (Auto) (0.1-1.2) % Neut # (Auto) (1.56-6.13) K/mm3 Lymph # (Auto) (1.18-3.74) K/mm3 [place] # (Auto) (0.24-0.36) K/mm3 Eos # (Auto) (0.04-0.36) K/mm3 Baso # (Auto) (0.01-0.08) K/mm3 Sodium (136-145) mEq/L Potassium (3.5-5.1) mEq/L Chloride (98-107) mEq/L Carbon Dioxide (21-32) mEq/L Anion Gap (5-15) BUN (7-18) mg/dL Creatinine (0.55-1.02) mg/dL Est Cr Clr Drug Dosing mL/min Estimated GFR (MDRD) (>60) mL/min BUN/Creatinine Ratio (14-18) Glucose (74-106) mg/dL Calcium (8.5-10.1) mg/dL Total Bilirubin (0.2-1.0) mg/dL AST (15-37) U/L ALT (14-59) U/L Alkaline Phosphatase (46-116) U/L Total Protein (6.4-8.2) g/dl Albumin (3.4-5.0) g/dl Globulin gm/dL Albumin/Globulin Ratio (1-2) HCG, Qual (NEGATIVE) Urine Color Yellow (Yellow) Urine Appearance Slt cloudy H (Clear) Urine pH 6.5 (5.0-8.0) Ur Specific [place] > or = 1.030 (1.005-1.030) Urine Protein Trace H (Negative) Urine Glucose (UA) Negative (Negative) Urine Ketones Negative (Negative) Urine Occult Blood 3+ H (Negative) Urine Nitrite Negative (Negative) Urine Bilirubin Negative (Negative) Urine Urobilinogen 0.2 (0.2-1.0) Ur Leukocyte Esterase Negative (Negative) U Hyaline Cast (Auto) 0-5 (0-5) /lpf Urine RBC 30-40 H (0-5) /hpf Urine WBC 0-5 (0-5) /hpf Ur Squamous Epith Cells 0-5 (0-5) /hpf Urine Bacteria Few (FEW) /hpf Urine Mucus Moderate H (FEW) /hpf Meds: Medications Generic Name Dose Route Start Last Admin Trade Name Freq PRN Reason Stop Dose Admin Sodium Chloride 10 ml 07/21/19 21:10 07/21/19 21:48 Saline Flush FLUSH 10 ml ASDIRECTED PRN Administration Keep Vein Open Discontinued Medications Generic Name Dose Route Start Last Admin Trade Name Freq PRN Reason Stop Dose Admin Sodium Chloride 1,000 mls @ 999 mls/hr 07/21/19 21:10 07/21/19 21:48 Normal Saline IV 07/21/19 22:10 999 mls/hr ONETIME ONE Administration - Re-Assessments/Exams Free Text/Narrative Re-Assessment/Exam: 07/21/19 23:03 I reviewed her labs with her. Her bleeding is not severe at this time based on exam. She is not orthostatic and her hgb is normal. I will discharge her home with instructions to follow-up with ob. Discharge instructions as documented. Departure - Departure Time of Disposition: 23:05 Disposition: Home, Self-Care 01 Condition: Fair Clinical Impression: Metrorrhagia - Discharge Information *PRESCRIPTION DRUG MONITORING PROGRAM REVIEWED*: No *COPY OF PRESCRIPTION DRUG MONITORING REPORT IN PATIENT CONRADO: No Referrals: Jenniffer Bobby NP [Primary Care Provider] - Mimi Lester MD [Physician] - Forms: ED Department Discharge, ED Return to Work/School Form Additional Instructions: Go home and rest. make sure you are drinking plenty of fluids. follow-up with Pb. Recommend Dr. Samuel or Dr. Lester at [facility]. call to schedule with one of these providers please return to the ER should your symptoms change or worsen. Sepsis Event Note - Evaluation Sepsis Screening Result: No Definite Risk - Focused Exam Vital Signs: Vital Signs Temp Pulse Resp BP Pulse Ox 07/21/19 20:27 99.0 F 98 20 90/69 99 Date Exam was Performed: 07/21/19 Time Exam was Performed: 23:07 - My Orders Last 24 Hours: My Active Orders 07/21/19 21:10 Cardiac Monitoring [RC] . DIRECTED Peripheral IV Care [RC] . DIRECTED Sodium Chloride 0.9% [Saline Flush] 10 ml FLUSH ASDIRECTED PRN Peripheral IV Insertion Adult [OM.PC] Routine 07/21/19 21:11 Orthostatic Vital Signs [RC] ASDIRECTED 07/21/19 21:32 Pelvic Exam, Set Up [RC] ASDIRECTED - Assessment/Plan Last 24 Hours: My Active Orders 07/21/19 21:10 Cardiac Monitoring [RC] . DIRECTED Peripheral IV Care [RC] . DIRECTED Sodium Chloride 0.9% [Saline Flush] 10 ml FLUSH ASDIRECTED PRN Peripheral IV Insertion Adult [OM.PC] Routine 07/21/19 21:11 Orthostatic Vital Signs [RC] ASDIRECTED 07/21/19 21:32 Pelvic Exam, Set Up [RC] ASDIRECTED
== END 2019-07-21 23:25 | disposition home or self-care (01) ==
LOC: JD.ED 20:17
DX: N92.1 Excessive and frequent menstruation with irregular cycle (principal); E03.9 Hypothyroidism, unspecified; E66.9 Obesity, unspecified; Z68.35 Body mass index [BMI] 35.0-35.9, adult; J45.909 Unspecified asthma, uncomplicated; Z88.8 Allergy status to other drugs, medicaments and biological substances
CPT/HCPCS: 36415; 80053; 81001; 84703; 85025; 96360; 99283; J7030

== ENCOUNTER 2019-08-04 20:25 | Emergency (ER) | payer MEDICAID ==
[2019-08-04 20:30] VITALS: BP 106/61; PULSE 97
--- NOTE | 2019-08-04 23:37 | EDM.PDOC ---
ED HPI GENERAL MEDICAL PROBLEM - General Chief Complaint: Chest Pain Stated Complaint: [facility] Time Seen by Provider: 08/04/19 23:15 Source of Information: Reports: Patient, Significant Other (Boyfriend) History Limitations: Reports: No Limitations - History of Present Illness INITIAL COMMENTS - FREE TEXT/NARRATIVE: Ms. Simms is a 23-year-old woman with a past medical history significant for congenital VSD, repaired as a child, PFT-confirmed asthma, anxiety, depression, hypothyroidism, and likely GERD, who now presents to the ED by EMS after apparent syncopal episode at work around 20:00 tonight. She states that she had been standing for approximately 4 hours, when she suddenly collapsed. She states that bystanders told her that she was shaking, and that she stopped breathing. She states that she felt lightheaded after she recovered. She is uninjured. The patient states that she had a similar event occurred to her once before, in 2013. She states that she was told that it was due to hypothyroidism. The patient states that she had a fever of 106 degrees last night, then again this morning. She states that she took Tylenol around 11 AM, but nothing since. She states that she has been feeling hot and cold for the past 2 weeks. Otherwise, the patient denies recent cough, dyspnea, chest pain, palpitations , nausea, vomiting, constipation, diarrhea, abdominal pain, urinary symptoms, recent weight gain or weight loss, recent bloody bowel movements or black bowel movements, recent joint aches, headaches, or rashes. Here in the ED, the patient is found to be hemodynamically stable, afebrile, saturating 100% on room air. The patient's PCP is going to be Jenniffer Bobby NP, however, she has not yet met Newtonyary. The patient canceled an appointment for 07/16/2019. Her Operating Systems Specialist is Dr. Daniel Olvera. The patient canceled an appointment for 07/24/2019. She received an influenza vaccine this season. Mid-Sternal Chest Pain Score (Numeric/FACES): 7 - Related Data Allergies Allergy/AdvReac Type Severity Reaction Status Date / Time methylprednisolone Allergy Difficulty Verified 08/04/19 20:27 Breathing Home Meds: Home Meds Levothyroxine [Synthroid] 50 mcg PO DAILY 10/21/17 [History] Past Medical History Cardiovascular History: Reports: Other (See Below) (Congenital VSD, repaired as an infant. RBBB.) Respiratory History: Reports: Asthma (PFT-confirmed) Psychiatric History: Reports: Depression, PTSD Endocrine/Metabolic History: Reports: Hypothyroidism, Obesity/BMI 30+, Other ( See Below) (Prediabetes) Dermatologic History: Reports: Eczema - Past Surgical History HEENT Surgical History: Reports: Adenoidectomy, Tonsillectomy Cardiovascular Surgical History: Reports: Other (See Below) (VSD repair at 5 months old) Female Surgical History: Reports: Section (x 1), Other (See Below) ( Left salpingectomy) Social & Family History - Family History Family Medical History: Noncontributory HEENT: Reports: Glaucoma Cardiac: Reports: Heart Failure, Hypertension Respiratory: Reports: Asthma, COPD OBGYN: Reports: Other OBGYN Family History: mother had preeclampsia Neurological: Reports: CVA, Migraines Endocrine/Metabolic: Reports: Diabetes, type II, Hypothyroidism Oncologic: Reports: Breast - Tobacco Use Smoking Status *Q: Former Smoker Years of Tobacco use: 1 Packs/Tins Daily: 0.2 Month/Year Tobacco Last Used: Quit 2017 - Caffeine Use Caffeine Use: Reports: Energy Drinks, Tea Caffeine Use Comment: rare - Alcohol Use Alcohol Use History: Yes Alcohol Use Frequency: Rarely - Recreational Drug Use Recreational Drug Use: Yes Drug Use in Last 12 Months: No Recreational Drug Type: Reports: Marijuana/Hashish (last smoked 2017), Methamphetamine (last smoked 06/03/2016) - Living Situation & Occupation Living situation: Reports: Single, Other (with friends) Occupation: Employed ([employer]) ED ROS GENERAL - Review of Systems Review Of Systems: Comprehensive ROS is negative, except as noted in HPI. ED EXAM, GENERAL - Physical Exam Exam: See Below Exam Limited By: No Limitations General Appearance: Alert, WD/WN, No Apparent Distress Eye Exam: Bilateral Eye: EOMI, Normal Inspection Ears: Normal External Exam, Hearing Grossly Normal Nose: Normal Inspection Throat/Mouth: Normal Inspection, Normal Lips, Normal Voice, No Airway Compromise Head: Atraumatic, Normocephalic Neck: Normal Inspection, Full Range of Motion Respiratory/Chest: No Respiratory Distress, Lungs Clear, Normal Breath Sounds, No Accessory Muscle Use Cardiovascular: Normal Peripheral Pulses, Regular Rate, Rhythm, No Edema, No Gallop, No JVD, No Murmur, No Rub Peripheral Pulses: 4+: Radial (L), Radial (R) GI/Abdominal: Normal Bowel Sounds, Soft, Non-Tender, No Organomegaly, No Distention, No Abnormal Bruit, No Mass (Female) Exam: Deferred Rectal (Female) Exam: Deferred Back Exam: Normal Inspection, Full Range of Motion, NT Extremities: Normal Inspection, Normal Range of Motion, No Pedal Edema, Normal Capillary Refill Neurological: Alert, Oriented, Normal Cognition, No Motor/Sensory Deficits Psychiatric: Flat Affect Skin Exam: Warm, Dry, Intact, Normal Color, No Rash EKG INTERPRETATION EKG Date: 08/04/19 Time: 23:50 Rhythm: NSR Rate (Beats/Min): 95 Stephen: Normal P-Wave: Present QRS: RBBB (Early transition) ST-T: Normal QT: Prolonged (QTc 478 ms) Comparison: No Change (07/14/2019) Course - Vital Signs Last Recorded V/S: Last Vital Signs Temp 37.2 C 08/04/19 20:28 Pulse 97 08/04/19 20:28 Resp 18 08/04/19 20:28 BP 106/61 08/04/19 20:28 Pulse Ox 100 08/04/19 20:28 Orthostatic Blood Pressure [ 106/80 Sitting] Orthostatic Blood Pressure [ 108/82 Standing] Orthostatic Blood Pressure [ 106/51 Supine] - Orders/Labs/Meds Orders: Active Orders 24 hr Category Date Time Status EKG Documentation Completion [RC] STAT Care 08/04/19 21:46 Active EKG Documentation Completion [RC] STAT Care 08/04/19 23:22 Active Orthostatic Vital Signs [RC] STAT Care 08/04/19 23:21 Active Orthostatic Vital Signs [RC] STAT Care 08/05/19 00:16 Active Chest 2V [CR] Stat Exams 08/05/19 00:01 Taken Labs: Laboratory Tests 08/04/19 08/04/19 08/05/19 Range/Units 23:50 23:50 00:01 WBC 9.97 (3.98-10.04) K/mm3 RBC 4.51 (3.98-5.22) M/mm3 Hgb 12.7 (11.2-15.7) gm/dl Hct 40.0 (34.1-44.9) % MCV 88.7 (79.4-94.8) fl MCH 28.2 (25.6-32.2) pg MCHC 31.8 L (32.2-35.5) g/dl RDW Std Deviation 44.0 (36.4-46.3) fL Plt Count 309 (182-369) K/mm3 MPV 10.1 (9.4-12.3) fl Neutrophils % (Manual) 63 H (40-60) % Band Neutrophils % 1 (0-10) % Lymphocytes % (Manual) 30 (20-40) % Atypical Lymphs % 0 % Monocytes % (Manual) 6 (2-10) % Eosinophils % (Manual) 0 L (0.7-5.8) % Basophils % (Manual) 0 L (0.1-1.2) Platelet Estimate Adequate Plt Morphology Comment Normal Hypochromasia 1+ slight RBC Morph Comment Not Reportable PT (9.7-12.0) SECONDS INR APTT (22-31) SECONDS D-Dimer, Quantitative (0.19-0.50) mg/L Sodium (136-145) mEq/L Potassium (3.5-5.1) mEq/L Chloride (98-107) mEq/L Carbon Dioxide (21-32) mEq/L Anion Gap (5-15) BUN (7-18) mg/dL Creatinine (0.55-1.02) mg/dL Est Cr Clr Drug Dosing mL/min Estimated GFR (MDRD) (>60) mL/min BUN/Creatinine Ratio (14-18) Glucose (74-106) mg/dL Calcium (8.5-10.1) mg/dL Magnesium (1.8-2.4) mg/dl Total Bilirubin (0.2-1.0) mg/dL AST (15-37) U/L ALT (14-59) U/L Alkaline Phosphatase (46-116) U/L Troponin I (0.00-0.056) ng/mL C-Reactive Protein (<1.0) mg/dL Total Protein (6.4-8.2) g/dl Albumin (3.4-5.0) g/dl Globulin gm/dL Albumin/Globulin Ratio (1-2) TSH 3rd Generation (0.358-3.74) uIU/mL Urine Color Yellow (Yellow) Urine Appearance Clear (Clear) Urine pH 6.0 (5.0-8.0) Ur Specific [place] > or = 1.030 (1.005-1.030) Urine Protein Negative (Negative) Urine Glucose (UA) Negative (Negative) Urine Ketones Negative (Negative) Urine Occult Blood Negative (Negative) Urine Nitrite Negative (Negative) Urine Bilirubin Negative (Negative) Urine Urobilinogen 0.2 (0.2-1.0) Ur Leukocyte Esterase Negative (Negative) Urine RBC 0-5 (0-5) /hpf Urine WBC 0-5 (0-5) /hpf Ur Squamous Epith Cells 0-5 (0-5) /hpf Urine Bacteria Few (FEW) /hpf Urine Mucus Many H (FEW) /hpf Urine HCG, Qual Negative (NEGATIVE) 08/05/19 08/05/19 Range/Units 00:01 00:01 WBC (3.98-10.04) K/mm3 RBC (3.98-5.22) M/mm3 Hgb (11.2-15.7) gm/dl Hct (34.1-44.9) % MCV (79.4-94.8) fl MCH (25.6-32.2) pg MCHC (32.2-35.5) g/dl RDW Std Deviation (36.4-46.3) fL Plt Count (182-369) K/mm3 MPV (9.4-12.3) fl Neutrophils % (Manual) (40-60) % Band Neutrophils % (0-10) % Lymphocytes % (Manual) (20-40) % Atypical Lymphs % % Monocytes % (Manual) (2-10) % Eosinophils % (Manual) (0.7-5.8) % Basophils % (Manual) (0.1-1.2) Platelet Estimate Plt Morphology Comment Hypochromasia RBC Morph Comment PT 9.8 (9.7-12.0) SECONDS INR < 0.93 APTT 26 (22-31) SECONDS D-Dimer, Quantitative 0.32 (0.19-0.50) mg/L Sodium 142 (136-145) mEq/L Potassium 3.2 L (3.5-5.1) mEq/L Chloride 108 H (98-107) mEq/L Carbon Dioxide 22 (21-32) mEq/L Anion Gap 15.2 H (5-15) BUN 8 (7-18) mg/dL Creatinine 0.7 (0.55-1.02) mg/dL Est Cr Clr Drug Dosing 90.55 mL/min Estimated GFR (MDRD) > 60 (>60) mL/min BUN/Creatinine Ratio 11.4 L (14-18) Glucose 113 H (74-106) mg/dL Calcium 9.0 (8.5-10.1) mg/dL Magnesium 2.0 (1.8-2.4) mg/dl Total Bilirubin 0.2 (0.2-1.0) mg/dL AST 8 L (15-37) U/L ALT 24 (14-59) U/L Alkaline Phosphatase 76 (46-116) U/L Troponin I < 0.017 (0.00-0.056) ng/mL C-Reactive Protein 1.0 (<1.0) mg/dL Total Protein 7.4 (6.4-8.2) g/dl Albumin 3.5 (3.4-5.0) g/dl Globulin 3.9 gm/dL Albumin/Globulin Ratio 0.9 L (1-2) TSH 3rd Generation 4.026 H (0.358-3.74) uIU/mL Urine Color (Yellow) Urine Appearance (Clear) Urine pH (5.0-8.0) Ur Specific [place] (1.005-1.030) Urine Protein (Negative) Urine Glucose (UA) (Negative) Urine Ketones (Negative) Urine Occult Blood (Negative) Urine Nitrite (Negative) Urine Bilirubin (Negative) Urine Urobilinogen (0.2-1.0) Ur Leukocyte Esterase (Negative) Urine RBC (0-5) /hpf Urine WBC (0-5) /hpf Ur Squamous Epith Cells (0-5) /hpf Urine Bacteria (FEW) /hpf Urine Mucus (FEW) /hpf Urine HCG, Qual (NEGATIVE) Meds: Medications Discontinued Medications Generic Name Dose Route Start Last Admin Trade Name Freq PRN Reason Stop Dose Admin Lactated Ringer's 1,000 mls @ 999 mls/hr 08/05/19 00:16 08/05/19 00:38 Ringers, Lactated IV 08/05/19 01:16 999 mls/hr .BOLUS ONE Administration - Re-Assessments/Exams Free Text/Narrative Re-Assessment/Exam: 08/04/19 23:33 As above, the patient states that she had a syncopal episode around 20:00 this evening, while standing at work. She states that she was told that she stopped breathing, and that she was shaking. He also states that she had a fever of 106 degrees both last night and this morning, and that she took Tylenol at 11 AM , but nothing since. On evaluation, however, the patient is hemodynamically stable, afebrile, saturating 100% on room air. She is completely uninjured. She reports that she has had a similar episode only once before, but in review of her prior medical records, I find that she was evaluated for near-syncope in [place] on 10/28/2016, and at that time, she had reported that she had had multiple similar events. She was evaluated for syncope, again in [place], on 03/18/2017, and the provider reported that her symptoms were frequent intermittent, and that prior extensive work-ups, including in [place], had been negative. She was seen again in [place] for syncope on 10/21/2017. Of her work-ups have been negative. Most interestingly, the patient was found to be malingering when seen in [place] on 02/18/2017. If the patient suffered a syncopal episode today, it would most likely have been due to lower extremity blood pooling, since she reports that she had been standing for about 4 hours before her event, however, I have ordered a work-up to evaluate for severe anemia, electrolyte abnormalities, dehydration, intravascular depletion, infectious causes, pulmonary embolus, and influenza. 08/05/19 00:17 The patient is orthostatic. I have ordered 1 L of LR, to be followed by repeat orthostatics. 08/05/19 01:04 Two-view chest radiograph appears to be grossly normal. The cardiac silhouette is within normal limits. No pulmonary vascular congestion. No pleural effusions. No focal infiltrate. No pneumothorax. Formal read per the Radiologist pending. The patient CBC is unremarkable. Her CMP is remarkable for a potassium slightly depressed at 3.2, an anion gap slightly elevated at 15.2 but with a bicarbonate normal at 22, and a blood glucose slightly elevated at 113, with the remainder of her CMP being unremarkable. Her magnesium level is within normal limits at 2.0. Her TSH is mildly elevated at 4.026. Her CRP is within normal limits at 1.0. Her troponin is undetectably low. Her D-dimer is within normal limits at 0.32. Her coags are within normal limits. Her urinalysis is unremarkable. Her urine test is negative. Her influenza swab returned negative. 08/05/19 02:15 Following 1 L of LR, the patient is no longer orthostatic. 08/05/19 02:17 Test results discussed with the patient and her boyfriend. The patient would like a note for work for today (Tuesday). Departure - Departure Time of Disposition: 02:18 Disposition: Home, Self-Care 01 Condition: Good Clinical Impression: Orthostasis - Discharge Information *PRESCRIPTION DRUG MONITORING PROGRAM REVIEWED*: Not Applicable *COPY OF PRESCRIPTION DRUG MONITORING REPORT IN PATIENT CONRADO: Not Applicable Referrals: Jenniffer Bobby NP [Primary Care Provider] - Daniel Olvera DO [Ordering Only Provider] - Forms: ED Department Discharge, ED Return to Work/School Form Additional Instructions: You were seen in the emergency room after passing out at work. Work-up in the ER included blood work, a urinalysis, a urine test, positional blood pressure checks, and influenza swab, a chest x-ray, and an ECG. Your work-up found your blood pressure dropped excessively between lying and standing, a condition known as orthostasis. You were given 1 L of IV fluid, and your blood pressures normalized. The remainder of your work-up was unremarkable. You are not anemic. No significant electrolyte abnormalities were found you do not have pneumonia or a urinary tract infection. You are not . You do not have a blood clot in your lungs. You have not suffered a heart attack. You do not have influenza. Going forward, we recommend that you stay adequately hydrated. Gatorade or Powerade are best. If any other problems, please do not hesitate to return to the ER. Sepsis Event Note - Evaluation Sepsis Screening Result: No Definite Risk - Focused Exam Vital Signs: Vital Signs Temp Pulse Resp BP Pulse Ox 08/04/19 20:28 37.2 C 97 18 106/61 100 Date Exam was Performed: 08/05/19 Time Exam was Performed: 02:15 - My Orders Last 24 Hours: My Active Orders 08/04/19 21:46 EKG Documentation Completion [RC] STAT 08/04/19 23:21 Orthostatic Vital Signs [RC] STAT 08/04/19 23:22 EKG Documentation Completion [RC] STAT 08/05/19 00:01 Chest 2V [CR] Stat 08/05/19 00:16 Orthostatic Vital Signs [RC] STAT - Assessment/Plan Last 24 Hours: My Active Orders 08/04/19 21:46 EKG Documentation Completion [RC] STAT 08/04/19 23:21 Orthostatic Vital Signs [RC] STAT 08/04/19 23:22 EKG Documentation Completion [RC] STAT 08/05/19 00:01 Chest 2V [CR] Stat 08/05/19 00:16 Orthostatic Vital Signs [RC] STAT
[2019-08-05] MEDS ORDERED: Lactated Ringers 1,000 ML IV ONE (00:16)
--- NOTE | 2019-08-05 07:56 | CR ---
Chest: 2 views of the chest were obtained. Comparison: Prior chest x-ray of 07/14/19. Heart size and mediastinum are within normal limits. Lungs are clear with no acute parenchymal change. Bony structures appear within normal limits for the patient's age. Impression: 1. Nothing acute is appreciated on 2 view chest x-ray. 2. No change is seen from previous chest x-ray. Diagnostic code #1 Study was dictated in [facility]
== END 2019-08-05 02:34 | disposition home or self-care (01) ==
LOC: JD.ED 20:25 → SUPCPDRO 20:25 → JD.ED 08-05 02:34
DX: I95.1 Orthostatic hypotension (principal); E03.9 Hypothyroidism, unspecified; E66.9 Obesity, unspecified; Z88.8 Allergy status to other drugs, medicaments and biological substances; Z98.890 Other specified postprocedural states
CPT/HCPCS: 36415; 71046; 80053; 81001; 81025; 83735; 84443; 84484; 85007; 85027; 85379; 85610; 85730; 86140; 87804; 93005; 96360; 99285; J7120

== ENCOUNTER 2019-08-21 19:33 | Emergency (ER) | payer MEDICAID ==
[2019-08-21 20:19] VITALS: BP 123/79; PULSE 86
[2019-08-21] MEDS ORDERED: Sodium Chloride 0.9% 10 ML Syringe FLUSH PRN (20:37)
[2019-08-21] MEDS ORDERED: Pantoprazole 40 MG Vial IVPUSH ONE (20:37)
--- NOTE | 2019-08-21 20:45 | EDM.PDOC ---
ED HPI GENERAL MEDICAL PROBLEM - General Chief Complaint: Abdominal Pain Stated Complaint: SEEING DARK CIRCLES/CHEST PAIN/LOW BLOOD SUGAR Time Seen by Provider: 08/21/19 20:25 Source of Information: Reports: Patient, RN Notes Reviewed History Limitations: Reports: No Limitations - History of Present Illness INITIAL COMMENTS - FREE TEXT/NARRATIVE: Patient is a 23-year-old female who presents to the ED for the evaluation of her left lower chest/epigastric pain. Patient states that the pain has been bad for the last hour to 1.5 hours. The patient did point to under her left breast, on her left chest margin as the source of her pain. She states that it is a stabbing pain and she has felt this before, roughly 2 weeks ago. Patient states that the pain comes and goes, does have a burning component to it at times, the patient states that lying flat seems to make it worse, and sometimes the pain does radiate upward into her throat. She notes nothing really makes it better, but she states it does worsen when she eats or drinks anything. Patient notes that her primary care provider will be Johanny Bobby but has not made an appointment. She does have a metal bonding helper, Dr. Huang, also has not made an appointment with him. Patient has a known history of hypothyroidism but is not taking her medications because she ran out and has not had a refill on a prescription. 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 Patient does use a vape pen, but denies smoking, drinking, or other drug use. 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: Musculoskeletal History: Reports: Fracture Psychiatric History: Reports: Anxiety, Depression, PTSD Endocrine/Metabolic History: Reports: Hypothyroidism, Obesity/BMI 30+, Other ( See Below) Other Endocrine/Metabolic History: borderline diabetes Dermatologic History: Reports: Eczema - Past Surgical History HEENT Surgical History: Reports: Adenoidectomy, Tonsillectomy Female Surgical History: Reports: Section Social & Family History - Family History Family Medical History: Noncontributory HEENT: Reports: Glaucoma Cardiac: Reports: Heart Failure, Hypertension Respiratory: Reports: Asthma, COPD OBGYN: Reports: Other OBGYN Family History: mother had preeclampsia Neurological: Reports: CVA, Migraines Endocrine/Metabolic: Reports: Diabetes, type II, Hypothyroidism Oncologic: Reports: Breast - Tobacco Use Smoking Status *Q: Never Smoker - Caffeine Use Caffeine Use: Reports: Energy Drinks, Tea Caffeine Use Comment: rare - Recreational Drug Use Recreational Drug Use: No - Living Situation & Occupation Living situation: Reports: Single, Other (with friends) Occupation: Employed ([employer]) ED ROS GENERAL - Review of Systems Review Of Systems: See Below Constitutional: Denies: Fever, Chills, Decreased Appetite Respiratory: Denies: Shortness of Breath, Cough Cardiovascular: Reports: Chest Pain (Left lower rib cage/chest pain) GI/Abdominal: Reports: Abdominal Pain (epigastric discomfort). Denies: Constipation, Diarrhea, Nausea, Vomiting ED EXAM, GI/ABD - Physical Exam Exam: See Below Exam Limited By: No Limitations General Appearance: Alert, WD/WN, No Apparent Distress Eyes: Bilateral: Normal Appearance Throat/Mouth: Normal Inspection, Normal Lips, Normal Teeth, Normal Gums, Normal Oropharynx, Normal Voice, No Airway Compromise Head: Atraumatic, Normocephalic Respiratory/Chest: No Respiratory Distress, Lungs Clear, Normal Breath Sounds, No Accessory Muscle Use, Chest Non-Tender Cardiovascular: Normal Peripheral Pulses, Regular Rate, Rhythm, No Murmur GI/Abdominal Exam: Normal Bowel Sounds, Soft, No Distention, No Mass, Tender ( upper abdomen mainly, epigastrium to LUQ) Extremities: Normal Inspection, Normal Capillary Refill Neurological: Alert, Oriented, Normal Cognition, No Motor/Sensory Deficits Psychiatric: Normal Affect, Normal Mood Skin Exam: Warm, Dry, Intact, Normal Color, No Rash EKG INTERPRETATION EKG Date: 08/21/19 Time: 20:45 Rhythm: NSR Rate (Beats/Min): 83 [place]: Normal P-Wave: Present QRS: RBBB ST-T: Normal QT: Normal Comparison: No Change EKG Interpretation Comments: reviewed with Dr. Jenkins. no acute ischemic change, no change from prior EKG. Course - Vital Signs Last Recorded V/S: Last Vital Signs Temp 97.8 F 08/21/19 20:17 Pulse 86 08/21/19 20:17 Resp 16 08/21/19 20:17 BP 123/79 08/21/19 20:17 Pulse Ox 100 08/21/19 20:17 - Orders/Labs/Meds Orders: Active Orders 24 hr Category Date Time Status EKG Documentation Completion [RC] STAT Care 08/21/19 20:36 Active Peripheral IV Care [RC] . DIRECTED Care 08/21/19 20:37 Active Chest 2V [CR] Stat Exams 08/21/19 20:36 Ordered Sodium Chloride 0.9% [Saline Flush] Med 08/21/19 20:37 Active 10 ml FLUSH ASDIRECTED PRN Peripheral IV Insertion Adult [OM.PC] Stat Oth 08/21/19 20:35 Ordered Medication Orders Sodium Chloride (Saline Flush) 10 ml FLUSH ASDIRECTED PRN PRN Reason: Keep Vein Open Last Admin: 08/21/19 21:00 Dose: 10 ml Labs: Laboratory Tests 08/21/19 08/21/19 Range/Units 21:00 21:00 WBC 8.31 (3.98-10.04) K/mm3 RBC 4.86 (3.98-5.22) M/mm3 Hgb 13.7 (11.2-15.7) gm/dl Hct 43.1 (34.1-44.9) % MCV 88.7 (79.4-94.8) fl MCH 28.2 (25.6-32.2) pg MCHC 31.8 L (32.2-35.5) g/dl RDW Std Deviation 43.8 (36.4-46.3) fL Plt Count 327 (182-369) K/mm3 MPV 10.3 (9.4-12.3) fl Neut % (Auto) 52.6 (34.0-71.1) % Lymph % (Auto) 36.8 (19.3-51.7) % [place] % (Auto) 8.1 (4.7-12.5) % Eos % (Auto) 1.7 (0.7-5.8) Baso % (Auto) 0.4 (0.1-1.2) % Neut # (Auto) 4.38 (1.56-6.13) K/mm3 Lymph # (Auto) 3.06 (1.18-3.74) K/mm3 [place] # (Auto) 0.67 H (0.24-0.36) K/mm3 Eos # (Auto) 0.14 (0.04-0.36) K/mm3 Baso # (Auto) 0.03 (0.01-0.08) K/mm3 Sodium 143 (136-145) mEq/L Potassium 3.8 (3.5-5.1) mEq/L Chloride 107 (98-107) mEq/L Carbon Dioxide 25 (21-32) mEq/L Anion Gap 14.8 (5-15) BUN 13 (7-18) mg/dL Creatinine 0.7 (0.55-1.02) mg/dL Est Cr Clr Drug Dosing 90.55 mL/min Estimated GFR (MDRD) > 60 (>60) mL/min BUN/Creatinine Ratio 18.6 H (14-18) Glucose 88 (74-106) mg/dL Calcium 9.4 (8.5-10.1) mg/dL Magnesium 2.1 (1.8-2.4) mg/dl Total Bilirubin 0.2 (0.2-1.0) mg/dL AST 12 L (15-37) U/L ALT 27 (14-59) U/L Alkaline Phosphatase 76 (46-116) U/L Troponin I < 0.017 (0.00-0.056) ng/mL Total Protein 7.9 (6.4-8.2) g/dl Albumin 3.9 (3.4-5.0) g/dl Globulin 4.0 gm/dL Albumin/Globulin Ratio 1.0 (1-2) Lipase 139 (73-393) U/L TSH 3rd Generation 5.000 H (0.358-3.74) uIU/mL Meds: Medications Generic Name Dose Route Start Last Admin Trade Name Freq PRN Reason Stop Dose Admin Sodium Chloride 10 ml 08/21/19 20:37 08/21/19 21:00 Saline Flush FLUSH 10 ml ASDIRECTED PRN Administration Keep Vein Open Discontinued Medications Generic Name Dose Route Start Last Admin Trade Name Mark PRN Reason Stop Dose Admin Pantoprazole Sodium 40 mg 08/21/19 20:37 08/21/19 21:00 Protonix Iv IVPUSH 08/21/19 20:38 40 mg ONETIME ONE Administration - Re-Assessments/Exams Free Text/Narrative Re-Assessment/Exam: 08/21/19 20:45 Patient presents to the ED for the evaluation of her chest pain/epigastric pain. Clinical suspicion for GERD or an ulcer, she does state a history of ulcers but does not take any medications. Patient has been seen multiple times in this ER, and has not followed up with any clinic providers for further work- up. For today's purposes, I will recheck labs, an EKG and a chest x-ray however I do not anticipate abnormal findings except for possible elevated TSH. I did stress the need for the patient to follow-up with a primary care provider to start taking care of herself,as it is not appropriate for her to be coming to the ER and using the ER as her primary care office. I did order 40mg of IV Protonix for initial management. 08/21/19 20:49 Usha, the beverage steward karthik told me while doing the patient's EKG, the patient would not get off of her phone while doing so, and also was trying to videotape her on the phone while doing the EKG. 08/21/19 21:40 Patient's laboratory evaluation comes back and is remarkable only for an elevated TSH at 5.000. I will stress the fact that she does need to make an appoint with Johanny Bobby for management, and should not be using the ER as a primary care office. Departure - Departure Time of Disposition: 21:41 Disposition: Home, Self-Care 01 Condition: Fair Clinical Impression: Atypical chest pain, Elevated TSH GERD (gastroesophageal reflux disease) Qualifiers: Esophagitis presence: esophagitis presence not specified Qualified Code(s): K21.9 - Gastro-esophageal reflux disease without esophagitis Hypothyroidism Qualifiers: Hypothyroidism type: unspecified Qualified Code(s): E03.9 - Hypothyroidism, unspecified - Discharge Information *PRESCRIPTION DRUG MONITORING PROGRAM REVIEWED*: No *COPY OF PRESCRIPTION DRUG MONITORING REPORT IN PATIENT CONRADO: No Instructions: Food Choices for Gastroesophageal Reflux Disease, Adult, Easy-to- Read, Hypothyroidism Referrals: Jenniffer Bobby, [employer] [Primary Care Provider] - Forms: ED Department Discharge Additional Instructions: You were evaluated in the ER today regarding your chest pain/upper abdominal pain. You had an EKG, some lab work and a chest x-ray done at today's visit, all of this is within normal limits except your TSH, which is elevated. You are not suffering from a heart attack at today's visit. The source of your pain is most likely due to GERD or acid reflux ulcer in nature. Nevertheless management of this is a proton pump inhibitor like omeprazole, please take 1 tab daily for further relief of symptoms. Omeprazole (Prilosec) is available [id number] and you can get this at any retail space like [facility] or any pharmacy. Please obtain this medication tomorrow and start taking as ypu have been directed. Your TSH level was elevated at 5.0 today, which means you will need supplementation with levothyroxine. It is highly and strongly recommended that you call our clinic, and obtain a clinic appointment with Johanny Bobby as previously directed for further management of your symptoms. The emergency room is not appropriate to be utilized as a primary care office, so we cannot start your levothyroxine out of the ER as it is a medication that will need to be adjusted by 1 provider on a long-term basis. Further recommend the possibility of a upper endoscopy to rule out the possibility of an ulcer, and to further investigate etiology of your reflux. Please return to the ER at any time however if symptoms should change or worsen. Sepsis Event Note - Evaluation Sepsis Screening Result: No Definite Risk - Focused Exam Vital Signs: Vital Signs Temp Pulse Resp BP Pulse Ox 08/21/19 20:17 97.8 F 86 16 123/79 100 Date Exam was Performed: 08/21/19 Time Exam was Performed: 21:40 - My Orders Last 24 Hours: My Active Orders 08/21/19 20:35 Peripheral IV Insertion Adult [OM.PC] Stat 08/21/19 20:36 EKG Documentation Completion [RC] STAT Chest 2V [CR] Stat 08/21/19 20:37 Peripheral IV Care [RC] . DIRECTED Sodium Chloride 0.9% [Saline Flush] 10 ml FLUSH ASDIRECTED PRN - Assessment/Plan Last 24 Hours: My Active Orders 08/21/19 20:35 Peripheral IV Insertion Adult [OM.PC] Stat 08/21/19 20:36 EKG Documentation Completion [RC] STAT Chest 2V [CR] Stat 08/21/19 20:37 Peripheral IV Care [RC] . DIRECTED Sodium Chloride 0.9% [Saline Flush] 10 ml FLUSH ASDIRECTED PRN
--- NOTE | 2019-08-21 21:47 | CR ---
Chest: PA and lateral views of the chest were obtained. Comparison: Prior chest x-ray of 08/05/19. Findings: Heart size at the upper limits of normal. Lungs are clear. Bony structures appear without acute finding. Impression: 1. Nothing acute is appreciated on 2 view chest x-ray. Diagnostic code #2 Study was dictated in MDT
== END 2019-08-21 22:20 | disposition home or self-care (01) ==
LOC: JD.ED 19:33
DX: K21.9 Gastro-esophageal reflux disease without esophagitis (principal); E03.9 Hypothyroidism, unspecified; Z88.8 Allergy status to other drugs, medicaments and biological substances; J45.909 Unspecified asthma, uncomplicated; E66.9 Obesity, unspecified; Z79.899 Other long term (current) drug therapy
CPT/HCPCS: 36415; 71046; 80053; 83690; 83735; 84443; 84484; 85025; 93005; 96374; 99284; C9113; 93010

== ENCOUNTER 2019-10-24 16:18 | Emergency (ER) | payer MEDICAID ==
[2019-10-24 16:33] VITALS: BP 112/82; PULSE 91
[2019-10-24] MEDS ORDERED: Sodium Chloride 0.9% 10 ML Syringe FLUSH PRN ×2 (16:50→17:38)
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
[2019-10-24] MEDS ORDERED: Iopamidol 612 MG/ML 50 ML SDV IARTIC ONE (17:38)
[2019-10-24] MEDS ORDERED: Iopamidol 612 MG/ML 100 ML Bottle IVPUSH ONE (17:38)
--- NOTE | 2019-10-24 18:24 | CT ---
CT abdomen and pelvis Technique: Multiple axial sections were obtained from above the dome of the diaphragm inferiorly through the pubic symphysis. Intravenous contrast was utilized. No oral contrast has been given. Comparison: No prior abdominal imaging is available. Findings: Visualized lung bases show nothing acute. Liver contains no focal abnormality. Spleen appears normal. Adrenal glands show no nodule. Pancreas is within normal limits. Gallbladder contains no calcified gallstones. Kidneys show symmetric contrast enhancement without hydronephrosis or mass. Contrast is noted within the distal ureters and within the bladder. Aorta shows no aneurysm. No retroperitoneal adenopathy or mesenteric abnormalities are seen. No pelvic mass or adenopathy is seen. No free fluid or inflammatory change is seen. Appendix is seen and is normal in size. Bone window settings were reviewed which show no acute osseous finding. Small fat-containing umbilical hernia is noted. Impression: 1. Nothing acute is appreciated on CT study of the abdomen and pelvis. Diagnostic code #2 This report was dictated in MDT
--- NOTE | 2019-10-24 18:26 | CT ---
CT neck Technique: Multiple axial sections through the neck were obtained. Intravenous contrast was utilized. Reconstructed coronal and sagittal images were obtained. Findings: Parotid salivary gland and submandibular salivary glands appear normal. Thyroid gland appears within normal limits. Visualized lung apices are clear. Parapharyngeal soft tissues are within normal limits. No prevertebral soft tissue swelling is seen. Retention cyst is noted within the inferior left maxillary sinus measuring 1.1 cm. Normal appearing scattered lymph nodes are seen. Bone window settings were reviewed which shows no discrete acute osseous finding. Impression: 1. Nothing acute is appreciated on CT study of the neck. 2. Small retention cyst within the inferior left maxillary sinus. Diagnostic code #2 This report was dictated in MDT
== END 2019-10-24 18:52 | disposition home or self-care (01) ==
LOC: JD.ED 16:18
DX: R10.12 Left upper quadrant pain (principal); J45.909 Unspecified asthma, uncomplicated; E03.9 Hypothyroidism, unspecified; E66.9 Obesity, unspecified; Z68.36 Body mass index [BMI] 36.0-36.9, adult; Z87.891 Personal history of nicotine dependence; Z88.8 Allergy status to other drugs, medicaments and biological substances; Y04.0XXA Assault by unarmed brawl or fight, initial encounter; Y92.009 Unspecified place in unspecified non-institutional (private) residence as the place of occurrence of the external cause
CPT/HCPCS: 36415; 70491; 74177; 80053; 83690; 85025; 86140; 99284; Q9967; 99283

== ENCOUNTER 2019-11-03 19:38 | Emergency (ER) | payer MEDICAID ==
[2019-11-03 19:49] VITALS: PULSE 89
[2019-11-03] MEDS ORDERED: Sodium Chloride 0.9% 10 ML Syringe FLUSH PRN (20:09)
[2019-11-03] MEDS ORDERED: Ondansetron 4 MG/2 ML SDV IVPUSH ONE (20:10)
[2019-11-03] MEDS ORDERED: Sodium Chloride 0.9% 1,000 ML IV ONE (20:10)
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
[2019-11-03] MEDS ORDERED: Alum Hydrox/Mag Hydrox/Simeth 30 ML, Lidocaine 2% 15 ML PO ONE ×2 (20:57)
[2019-11-03] MEDS ORDERED: LORazepam 2 MG/ML SDV IVPUSH ONE (21:37)
[2019-11-03] MEDS ORDERED: Ketorolac 30 MG/ML SDV IVPUSH ONE (21:37)
[2019-11-03 22:35] VITALS: BP 94/80
--- NOTE | 2019-11-04 10:03 | CR ---
Chest: 2 views of the chest were obtained. Comparison: Prior chest x-ray of 08/21/19. Heart size and mediastinum are within normal limits. Lungs are clear with no acute parenchymal change. Bony structures appear within normal limits. Impression: 1. Nothing acute is appreciated on 2 view chest x-ray. Diagnostic code #1 Study was dictated in MDT
== END 2019-11-03 22:30 | disposition home or self-care (01) ==
LOC: JD.ED 19:38
DX: K21.9 Gastro-esophageal reflux disease without esophagitis (principal); F41.9 Anxiety disorder, unspecified; J45.909 Unspecified asthma, uncomplicated; E03.9 Hypothyroidism, unspecified; Z79.899 Other long term (current) drug therapy; E66.9 Obesity, unspecified; Z68.36 Body mass index [BMI] 36.0-36.9, adult; Z88.8 Allergy status to other drugs, medicaments and biological substances
CPT/HCPCS: 36415; 71046; 80053; 82977; 83690; 83735; 83880; 84443; 84484; 85007; 85027; 85610; 85730; 93005; 96361; 96374; 96375; 99285; A9270; J1885; J2060; J2405; J7030; 93010; 99284

== ENCOUNTER 2019-11-06 19:30 | Emergency (ER) | payer MEDICAID ==
--- NOTE | 2019-11-06 20:03 | EDM.PDOC ---
ED HPI GENERAL MEDICAL PROBLEM - General Chief Complaint: Abdominal Pain Stated Complaint: CHEST PAIN Time Seen by Provider: 11/06/19 19:58 - History of Present Illness INITIAL COMMENTS - FREE TEXT/NARRATIVE: 24-year-old female presents the emergency room with upper abdominal discomfort. Patient has some mid epigastric and left upper abdominal discomfort. This radiates up the middle of her chest right behind her breastbone. She is been on Carafate in the past this and that has not helped GI cocktails have not helped and other dyspepsia meds have not helped. But does not sound like she stayed on them for an adequate period of time. She does not have any breathing difficulties or shortness of breath. Denies fevers or chills. She has some nausea no vomiting no black or tarry stools no blood in her stools patient was attempted on Ativan and this may have made it worse. Treatments MENTAL HEALTH SPECIALIST: Reports: Other (see below) Other Treatments MENTAL HEALTH SPECIALIST: prescribed ativan Upper Abdominal Pain Score (Numeric/FACES): 10 - Related Data Allergies Allergy/AdvReac Type Severity Reaction Status Date / Time methylprednisolone Allergy Severe Difficulty Verified 11/06/19 19:45 Breathing Home Meds: Home Meds Levothyroxine [Synthroid] 50 mcg PO DAILY 10/21/17 [History] Sucralfate [Carafate] 1 gram PO TID 11/03/19 [History] LORazepam [Ativan] 1 mg PO TID 11/06/19 [History] Famotidine 20 mg PO Q12H #30 tablet 11/07/19 [Rx] Pantoprazole Sodium [Protonix] 40 mg PO Q24H #30 tablet. 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: Musculoskeletal History: Reports: Fracture Neurological History: Reports: None Psychiatric History: Reports: Anxiety, Depression, PTSD Endocrine/Metabolic History: Reports: Hypothyroidism, Obesity/BMI 30+, Other (See Below) Other Endocrine/Metabolic History: borderline diabetes Hematologic History: Reports: None Immunologic History: Reports: None Oncologic (Cancer) History: Reports: None Dermatologic History: Reports: Eczema - Infectious Disease History Infectious Disease History: Reports: None - Past Surgical History Head Surgeries/Procedures: Reports: None HEENT Surgical History: Reports: Tonsillectomy Female Surgical History: Reports: Other (See Below) Social & Family History - Family History Family Medical History: Noncontributory HEENT: Reports: Glaucoma Cardiac: Reports: Heart Failure, Hypertension Respiratory: Reports: Asthma, COPD OBGYN: Reports: Other OBGYN Family History: mother had preeclampsia Neurological: Reports: CVA, Migraines Endocrine/Metabolic: Reports: Diabetes, type II, Hypothyroidism Oncologic: Reports: Breast - Caffeine Use Caffeine Use: Reports: Soda Caffeine Use Comment: rare - Recreational Drug Use Recreational Drug Use: Yes Drug Use in Last 12 Months: Yes Recreational Drug Type: Reports: Marijuana/Hashish 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 Denies: Black Stool, Bloody Stool, Constipation, Diarrhea, Vomiting : Reports: No Symptoms Musculoskeletal: Reports: No Symptoms Skin: Reports: No Symptoms Neurological: Reports: No Symptoms Psychiatric: Reports: Anxiety ED EXAM, GI/ABD - Physical Exam Exam: See Below Exam Limited By: No Limitations General Appearance: Alert, No Apparent Distress Head: Atraumatic, Normocephalic Neck: Normal Inspection, Supple, Non-Tender, Full Range of Motion Respiratory/Chest: No Respiratory Distress, Lungs Clear, Normal Breath Sounds Cardiovascular: Regular Rate, Rhythm, No Edema, No Murmur GI/Abdominal Exam: Normal Bowel Sounds, Soft, Other (Epigastric and left upper quadrant discomfort no rigidity rebound or guarding noted she is obese) Back Exam: Normal Inspection. No: CVA Tenderness (L), CVA Tenderness (R) Extremities: Normal Inspection, Normal Range of Motion, Non-Tender Psychiatric: Flat Affect Skin Exam: Warm, Dry, Intact Course - Vital Signs Last Recorded V/S: Last Vital Signs Temp 36.6 C 11/06/19 23:56 Pulse 87 11/06/19 23:56 Resp 18 11/06/19 23:56 BP 99/68 11/06/19 23:56 Pulse Ox 98 11/06/19 23:56 - Orders/Labs/Meds Labs: Laboratory Tests 11/06/19 11/06/19 Range/Units 20:38 20:38 WBC 8.54 (3.98-10.04) K/mm3 RBC 5.10 (3.98-5.22) M/mm3 Hgb 13.6 (11.2-15.7) gm/dl Hct 44.0 (34.1-44.9) % MCV 86.3 (79.4-94.8) fl MCH 26.7 (25.6-32.2) pg MCHC 30.9 L (32.2-35.5) g/dl RDW Std Deviation 44.7 (36.4-46.3) fL Plt Count 305 (182-369) K/mm3 MPV 10.2 (9.4-12.3) fl Neut % (Auto) 63.4 (34.0-71.1) % Lymph % (Auto) 24.6 (19.3-51.7) % [place]kin % (Auto) 7.3 (4.7-12.5) % Eos % (Auto) 4.2 (0.7-5.8) Baso % (Auto) 0.4 (0.1-1.2) % Neut # (Auto) 5.42 (1.56-6.13) K/mm3 Lymph # (Auto) 2.10 (1.18-3.74) K/mm3 [place]kin # (Auto) 0.62 H (0.24-0.36) K/mm3 Eos # (Auto) 0.36 (0.04-0.36) K/mm3 Baso # (Auto) 0.03 (0.01-0.08) K/mm3 Sodium 141 (136-145) mEq/L Potassium 3.6 (3.5-5.1) mEq/L Chloride 105 (98-107) mEq/L Carbon Dioxide 25 (21-32) mEq/L Anion Gap 14.6 (5-15) BUN 11 (7-18) mg/dL Creatinine 0.7 (0.55-1.02) mg/dL Est Cr Clr Drug Dosing 94.32 mL/min Estimated GFR (MDRD) > 60 (>60) mL/min BUN/Creatinine Ratio 15.7 (14-18) Glucose 77 (74-106) mg/dL Calcium 9.6 (8.5-10.1) mg/dL Total Bilirubin 0.4 (0.2-1.0) mg/dL AST 22 (15-37) U/L ALT 41 (14-59) U/L Alkaline Phosphatase 78 (46-116) U/L Total Protein 8.0 (6.4-8.2) g/dl Albumin 4.0 (3.4-5.0) g/dl Globulin 4.0 gm/dL Albumin/Globulin Ratio 1.0 (1-2) Lipase 130 (73-393) U/L Meds: Medications Discontinued Medications Generic Name Dose Route Start Last Admin Trade Name Freq PRN Reason Stop Dose Admin Famotidine 40 mg 11/06/19 20:19 11/06/19 20:26 Pepcid PO 11/06/19 20:20 40 mg ONETIME ONE Administration Pantoprazole Sodium 40 mg 11/06/19 20:18 11/06/19 20:26 Protonix PO 11/06/19 20:19 40 mg ONETIME ONE Administration Sucralfate 1 gm 11/06/19 20:18 11/06/19 20:26 Carafate PO 11/06/19 20:19 1 gm ONETIME ONE Administration - Re-Assessments/Exams Free Text/Narrative Re-Assessment/Exam: 11/07/19 00:10 She is doing a little bit better on the medication she received to receive Protonix and Carafate and famotidine orally. Labs are unrevealing. The patient would like to try these medications on an outpatient basis and go home Departure - Departure Time of Disposition: 00:11 Disposition: Home, Self-Care 01 Clinical Impression: Dyspepsia - Discharge Information Prescriptions: Famotidine 20 mg PO Q12H #30 tablet Pantoprazole Sodium [Protonix] 40 mg PO Q24H #30 tablet. Sucralfate [Carafate] 1 gm PO ASDIRECTED #24 tablet Instructions: Abdominal Pain, Adult, [id number] Referrals: Pia Radford MD [Primary Care Provider] - Forms: ED Department Discharge, ED Return to Work/School Form Additional Instructions: Return to the emergency room with any questions problems or worsening symptoms. Take the medications as directed you will take the Carafate for 6 days. During this time take the rest your medications 1 hour before the Carafate or at least 2 hours after the Carafate. You have been started on famotidine 20 mg twice daily. After 2 weeks famotidine is [id number] take 20 mg once a day. With your Protonix be sure and take it 60 minutes before your morning meal. Follow-up with Dr. Radford next week Sepsis Event Note (ED) - Evaluation Sepsis Screening Result: No Definite Risk - Focused Exam Vital Signs: Vital Signs Temp Pulse Resp BP Pulse Ox 11/06/19 23:56 36.6 C 87 18 99/68 98 11/06/19 19:39 36.1 C 97 18 116/77 98
[2019-11-06] MEDS ORDERED: Sucralfate 1 GM Tab PO ONE (20:18)
[2019-11-06] MEDS ORDERED: Pantoprazole 40 MG Tab.CR PO ONE (20:18)
[2019-11-06] MEDS ORDERED: Famotidine 20 MG Tab PO ONE (20:19)
[2019-11-06 23:57] VITALS: BP 99/68; PULSE 87
== END 2019-11-07 00:37 | disposition home or self-care (01) ==
LOC: JD.ED 19:30
DX: R10.13 Epigastric pain (principal); J45.909 Unspecified asthma, uncomplicated; F41.9 Anxiety disorder, unspecified; E03.9 Hypothyroidism, unspecified; E66.9 Obesity, unspecified; Z68.34 Body mass index [BMI] 34.0-34.9, adult; Z79.899 Other long term (current) drug therapy; Z88.8 Allergy status to other drugs, medicaments and biological substances
CPT/HCPCS: 36415; 80053; 83690; 85025; 99284; A9270; 99282

== ENCOUNTER 2019-11-18 09:07 | Emergency (ER) | payer MEDICAID ==
[2019-11-18 09:20] VITALS: BP 125/75; PULSE 88
--- NOTE | 2019-11-18 09:31 | EDM.PDOC ---
ED HPI GENERAL MEDICAL PROBLEM - General Chief Complaint: Respiratory Problem Stated Complaint: TROUBLE BREATHING Time Seen by Provider: 11/18/19 09:31 Source of Information: Reports: Patient History Limitations: Reports: No Limitations - History of Present Illness INITIAL COMMENTS - FREE TEXT/NARRATIVE: 24-year-old female with known asthma presents with an exacerbation with pa roxysmal coughing no sleep and minimal relief from pro-air inhaler. She used it about 20 times overnight with little relief. On examination she is in mild respiratory distress with tachypnea at 20/min and O2 sats of 95% on room air. Has no cold symptoms. Has recently been tested for COVID and was negative as well. Had to use steroids about 2 years ago for a bad asthma attack. It is suspected a high pollen count environmental allergens at present are likely the culprit. Onset: Gradual Onset Date: 11/15/19 (Really getting worse over the last 4 days particular last 2 days.) Duration: Day(s):, Getting Worse Location: Reports: Chest (As of breath with wheezing on exertion.) Quality: Reports: Other (Wheezing at rest) Improves with: Reports: None Worsens with: Reports: Movement Context: Reports: Other. Denies: Activity, Exercise (With exertion she seems to be worse during the night.), Lifting, Sick Contact, Trauma Associated Symptoms: Reports: Chest Pain ( Accessible cough), Cough ( or sputum if anything.), cough w sputum (Anus occurrence), Shortness of Breath, Other. Denies: Diaphoresis, Fever/Chills ( chest pain from coughing so much.), Headaches, Loss of Appetite, Malaise Treatments CARE MGR: Reports: Other (see below) (History of pro-air inhaler overnight multiple times with no relief of dyspnea.) - Related Data Allergies Allergy/AdvReac Type Severity Reaction Status Date / Time methylprednisolone Allergy Severe Difficulty Verified 11/18/19 09:18 Breathing Home Meds: Home Meds Levothyroxine [Synthroid] 50 mcg PO DAILY 10/21/17 [History] Sucralfate [Carafate] 1 gram PO TID 11/03/19 [History] LORazepam [Ativan] 1 mg PO TID 11/06/19 [History] Famotidine 20 mg PO Q12H #30 tablet 11/07/19 [Rx] Pantoprazole Sodium [Protonix] 40 mg PO Q24H #30 tablet. 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 History: Reports: Fracture Neurological History: Reports: None Psychiatric History: Reports: Anxiety, Depression, PTSD Endocrine/Metabolic History: Reports: Hypothyroidism, Obesity/BMI 30+, Other (See Below) Other Endocrine/Metabolic History: borderline diabetes Hematologic History: Reports: None Immunologic History: Reports: None Oncologic (Cancer) History: Reports: None Dermatologic History: Reports: Eczema - Infectious Disease History Infectious Disease History: Reports: None - Past Surgical History Head Surgeries/Procedures: Reports: None HEENT Surgical History: Reports: Tonsillectomy Female Surgical History: Reports: Other (See Below) Social & Family History - Family History Family Medical History: Noncontributory HEENT: Reports: Glaucoma Cardiac: Reports: Heart Failure, Hypertension Respiratory: Reports: Asthma, COPD OBGYN: Reports: Other OBGYN Family History: mother had preeclampsia Neurological: Reports: CVA, Migraines Endocrine/Metabolic: Reports: Diabetes, type II, Hypothyroidism Oncologic: Reports: Breast - Caffeine Use Caffeine Use: Reports: Soda Caffeine Use Comment: rare - Living Situation & Occupation Living situation: Reports: Single, Other (with friends) Occupation: Employed ([email or web address]) [facility] - Review of Systems Review Of Systems: See Below Constitutional: Reports: Malaise, Weakness, Fatigue, Decreased Appetite (She did not sleep at all last night.). Denies: Fever, Chills HEENT: Reports: Rhinitis Respiratory: Reports: Shortness of Breath (Been plugged for the last several weeks due to allergic rhinitis.), Wheezing, Cough. Denies: Pleuritic Chest Pain, Sputum, Hemoptysis (Adductive) Cardiovascular: Reports: Chest Pain, Dyspnea on Exertion, Lightheadedness. Denies: Blood Pressure Problem (From coughing so much.), Claudication, Edema (Times with coughing so hard), Orthopnea, Palpitations Endocrine: Reports: Fatigue GI/Abdominal: Reports: Decreased Appetite. Denies: Constipation, Diarrhea, Nausea, Vomiting : Reports: No Symptoms Musculoskeletal: Reports: No Symptoms Skin: Reports: No Symptoms Neurological: Reports: No Symptoms Psychiatric: Reports: No Symptoms Hematologic/Lymphatic: Reports: No Symptoms Immunologic: Reports: No Symptoms ED EXAM, GENERAL - Physical Exam Exam: See Below Exam Limited By: No Limitations General Appearance: Alert, WD/WN, No Apparent Distress, Other (Images 36.2 heart rate 88 and sinus respiratory 16 with O2 sats of 95% on room air. BP is 06[birth year]16/1974. No audible wheezing) Eye Exam: Bilateral Eye: Normal Inspection, PERRL Ears: Normal TMs Nose: Nasal Swelling (Along of the superior and middle turbinates bilaterally no nasal polyps identified.), Clear Rhinorrhea Throat/Mouth: Normal Inspection, Normal Lips, Normal Teeth, Normal Oropharynx Head: Atraumatic, Normocephalic Neck: Normal Inspection, Supple, Non-Tender, Full Range of Motion. No: Carotid Bruit, Lymphadenopathy (L), Lymphadenopathy (R) Respiratory/Chest: No Accessory Muscle Use, Respiratory Distress, Wheezing (Mild tachypnea at rest.). No: Crackles ( Diffuse wheezing in all lung pike mostly on expiration.), Rales, Rhonchi Cardiovascular: Normal Peripheral Pulses, Regular Rate, Rhythm, No Edema, No Gallop, No Murmur, No Rub Peripheral Pulses: 3+: Carotid (L), Carotid (R), Posterior Tibial (L), Posterior Tibial (R), Dorsalis Pedis (L), Dorsalis Pedis (R) GI/Abdominal: Normal Bowel Sounds, Soft, Non-Tender, No Organomegaly, No Abnormal Bruit, No Mass, Pelvis Stable Back Exam: Normal Inspection, Full Range of Motion. No: CVA Tenderness (L), CVA Tenderness (R) Extremities: Normal Inspection, Normal Range of Motion, Non-Tender, No Pedal Edema Neurological: Alert, Oriented, CN II-XII Intact, Normal Cognition, Normal Gait Psychiatric: Normal Affect, Normal Mood Skin Exam: Warm, Dry, Intact, Normal Color, No Rash Course - Vital Signs Last Recorded V/S: Last Vital Signs Temp 36.2 C 11/18/19 09:18 Pulse 88 11/18/19 09:18 Resp 16 11/18/19 09:18 BP 125/75 11/18/19 09:18 Pulse Ox 99 11/18/19 10:14 - Orders/Labs/Meds Orders: Active Orders 24 hr Category Date Time Status RT Aerosol Therapy [RC] ASDIRECTED Care 11/18/19 09:35 Active RT Aerosol Therapy [RC] ASDIRECTED Care 11/18/19 10:03 Active Meds: Medications Discontinued Medications Generic Name Dose Route Start Last Admin Trade Name Freq PRN Reason Stop Dose Admin Albuterol/Ipratropium 3 ml 11/18/19 09:35 11/18/19 09:45 Duoneb 3.0-0.5 Mg/3 Ml NEB 3 ml Q4H PRN Administration Shortness Of Breath/wheezing Albuterol/Ipratropium 3 ml 11/18/19 10:12 11/18/19 10:15 Duoneb 3.0-0.5 Mg/3 Ml NEB 3 ml Q4H PRN Administration Shortness Of Breath/wheezing Prednisone 30 mg 11/18/19 09:35 11/18/19 09:42 Prednisone PO 11/18/19 09:36 30 mg ONETIME ONE Administration - Radiology Interpretation Free Text/Narrative:: 24-year-old female presents to the ED with exacerbation of her asthma. She used her pro-air inhaler almost 20 times overnight with very little relief of her asthma. Asthma symptoms started 4 days ago but have been worsened over the last 48 hours. She does not appear to have any upper respiratory tract infection. She has no exposure to new but anybody with COVID. She believes it is secondary to environmental allergens as a cause or trigger to her asthma symptoms. She is wheezing throughout both lung pike. Plan DuoNeb will also start her on prednisone 30 mg p.o. at this time - Re-Assessments/Exams Free Text/Narrative Re-Assessment/Exam: 11/18/19 10:03 and does not feel she benefited much from the DuoNeb. It will be repeated in 10 minutes time I think there is better air entry to her basis and less wheezing. Sats are also improved to 98%. 11/18/19 10:50 is a little better after the second DuoNeb treatment. There is a little better air entry to both lower lung pike and no wheezing at present. O2 sats have remained at 98%. I am going to place her on prednisone 20 mg twice daily for 5 days with first held to be taken tonight. Also prednisone was given in the ED. She has a pro-air inhaler I will write a prescription for Bentyl and her albuterol inhaler to make sure she does not run out. Follow-up with personal care physician if not markedly improved in 3 days time. Departure - Departure Time of Disposition: 10:51 Disposition: Home, Self-Care 01 Condition: Fair Clinical Impression: Acute exacerbation of asthma with allergic rhinitis - Discharge Information *PRESCRIPTION DRUG MONITORING PROGRAM REVIEWED*: Not Applicable *COPY OF PRESCRIPTION DRUG MONITORING REPORT IN PATIENT CONRADO: Not Applicable Prescriptions: predniSONE [Prednisone] 20 mg PO BID #12 tablet Albuterol [Ventolin HFA] 2 puff INH Q3H PRN #1 inhaler PRN Reason: wheezing/shortness of breath Instructions: Asthma, Adult, Asthma Attack Referrals: Pia Radford MD [Primary Care Provider] - Forms: ED Department Discharge, ED Return to Work/School Form Additional Instructions: Valuation in the emergency room today in regards to acute exacerbation of your asthma symptoms. Most likely trigger is the outdoor pollen count which is extremely high due to the low humidity and high heat index. Pollen counts of higher the last week than they have been for the last 2 years. Think this accounts for your nose being clogged up as well from allergic rhinitis. You were treated with 2 treatments of DuoNeb in the ED which improved your oxygen saturations to 98% which is normal. It did reduce wheezing and you had better air entry to the lung bases as well. You are also treated with first dose of steroid prednisone 30 mg in the ED. He will need to take second 20 mg dose at suppertime tonight. Then you are to take it with breakfast and supper for the next 5-1/2 days. That marked improvement over the next 24 to 48 hours. If not you should be reviewed. Note given to excuse her from the workplace today and tentatively you may return to work tomorrow with no restrictions. Sepsis Event Note (ED) - Evaluation Sepsis Screening Result: No Definite Risk - Focused Exam Vital Signs: Vital Signs Temp Pulse Resp BP Pulse Ox Pulse Ox 11/18/19 10:14 99 11/18/19 09:35 100 11/18/19 09:18 36.2 C 88 16 125/75 95 - My Orders Last 24 Hours: My Active Orders 11/18/19 09:35 RT Aerosol Therapy [RC] ASDIRECTED 11/18/19 10:03 RT Aerosol Therapy [RC] ASDIRECTED - Assessment/Plan Last 24 Hours: My Active Orders 11/18/19 09:35 RT Aerosol Therapy [RC] ASDIRECTED 11/18/19 10:03 RT Aerosol Therapy [RC] ASDIRECTED
[2019-11-18] MEDS ORDERED: predniSONE 20 MG Tab PO ONE (09:35)
[2019-11-18] MEDS ORDERED: Albuterol/Ipratropium 3.0-0.5 MG/3 ML Neb Soln NEB PRN ×2 (09:35→10:12)
== END 2019-11-18 11:05 | disposition home or self-care (01) ==
LOC: JD.ED 09:07
DX: J45.901 Unspecified asthma with (acute) exacerbation (principal); F41.9 Anxiety disorder, unspecified; F32.9 Major depressive disorder, single episode, unspecified; F43.10 Post-traumatic stress disorder, unspecified; E03.9 Hypothyroidism, unspecified; E66.9 Obesity, unspecified; Z68.33 Body mass index [BMI] 33.0-33.9, adult; Z88.8 Allergy status to other drugs, medicaments and biological substances; Z79.899 Other long term (current) drug therapy
CPT/HCPCS: 94640; 99284; J7512; 99283; J7620-GY

== ENCOUNTER 2019-11-19 00:51 | Emergency (ER) | payer MEDICAID ==
[2019-11-19 01:03] VITALS: BP 113/86; PULSE 90
[2019-11-19] MEDS ORDERED: predniSONE 20 MG Tab PO ONE ×2 (01:27→01:29)
[2019-11-19] MEDS ORDERED: Albuterol/Ipratropium 3.0-0.5 MG/3 ML Neb Soln NEB ONE (01:27)
[2019-11-19] MEDS ORDERED: LORazepam 2 MG/ML SDV ONE ×2 (01:47→02:38)
--- NOTE | 2019-11-19 01:48 | EDM.PDOC ---
ED HPI GENERAL MEDICAL PROBLEM - General Chief Complaint: Respiratory Problem Stated Complaint: [facility] Time Seen by Provider: 11/19/19 01:20 - History of Present Illness INITIAL COMMENTS - FREE TEXT/NARRATIVE: 24-year-old female presents the emergency room with shortness of breath she is brought in by [facility]. Patient has had worsening breathing difficulties over the last several weeks. She was seen here yesterday started on prednisone 20 mg twice daily and to continue using her inhaler. She is not doing so well with this so she presents again early this morning with no improvement. Patient denies any fevers or chills does not have much of a cough sneezes occasionally. She is got upper airway congestion. She states she has a allergy to methylprednisolone. She is not positive she is not and her periods 5 days late. She has hypothyroidism is treated for dyspepsia depression and has a albuterol inhaler. After the patient has been here for a while, the patient is tried to have episodes of brief involuntary tonic-clonic like activity with her eyes open looking ahead she would look towards somebody talking to her but would not acknowledge. The patient significant other was here and said this is what she was doing at home. She was not at all postictal with the EMS crew or certainly when she arrived here in the emergency department. - Related Data Allergies Allergy/AdvReac Type Severity Reaction Status Date / Time methylprednisolone Allergy Severe Difficulty Verified 11/19/19 01:00 Breathing Home Meds: Home Meds Levothyroxine [Synthroid] 50 mcg PO DAILY 10/21/17 [History] Sucralfate [Carafate] 1 gram PO TID 11/03/19 [History] LORazepam [Ativan] 1 mg PO TID 11/06/19 [History] Famotidine 20 mg PO Q12H #30 tablet 11/07/19 [Rx] Pantoprazole Sodium [Protonix] 40 mg PO Q24H #30 tablet. 11/07/19 [Rx] Sucralfate [Carafate] 1 gm PO ASDIRECTED #24 tablet 11/07/19 [Rx] Albuterol [Ventolin HFA] 2 puff INH Q3H PRN #1 inhaler 11/18/19 [Rx] predniSONE [Prednisone] 20 mg PO BID #12 tablet 11/18/19 [Rx] Fluticasone/Salmeterol [Advair HFA 115-21 MCG] 2 puff INH BID #1 inhaler 11/19/19 [Rx] predniSONE [Prednisone] 10 mg PO Q12H #10 tablet 11/19/19 [Rx] Past Medical History - Past Health History Medical/Surgical History: Denies Medical/Surgical History Cardiovascular History: Reports: Other (See Below) Other Cardiovascular History: HYPOTENSION, VSD Respiratory History: Reports: Asthma Other Respiratory History: uses rescue inhaler Gastrointestinal History: Reports: Other (See Below) Other Gastrointestinal History: ulcers 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 History: Reports: Fracture Neurological History: Reports: None Psychiatric History: Reports: Anxiety, Depression, PTSD Endocrine/Metabolic History: Reports: Hypothyroidism, Obesity/BMI 30+, Other (See Below) Other Endocrine/Metabolic History: borderline diabetes Hematologic History: Reports: None Immunologic History: Reports: None Oncologic (Cancer) History: Reports: None Dermatologic History: Reports: Eczema - Infectious Disease History Infectious Disease History: Reports: None - Past Surgical History Head Surgeries/Procedures: Reports: None HEENT Surgical History: Reports: Tonsillectomy Female Surgical History: Reports: Other (See Below) Social & Family History - Family History Family Medical History: Noncontributory HEENT: Reports: Glaucoma Cardiac: Reports: Heart Failure, Hypertension Respiratory: Reports: Asthma, COPD OBGYN: Reports: Other OBGYN Family History: mother had preeclampsia Neurological: Reports: CVA, Migraines Endocrine/Metabolic: Reports: Diabetes, type II, Hypothyroidism Oncologic: Reports: Breast - Tobacco Use Second Hand Smoke Exposure: No - Caffeine Use Caffeine Use: Reports: Coffee, Soda Caffeine Use Comment: rare - Recreational Drug Use Recreational Drug Use: No - Living Situation & Occupation Living situation: Reports: Single, Other (with friends) Occupation: Employed ([employer]) ED ROS GENERAL - Review of Systems Review Of Systems: See Below Constitutional: Reports: No Symptoms. Denies: Fever, Chills HEENT: Reports: Rhinitis Respiratory: Reports: Shortness of Breath, Wheezing, Pleuritic Chest Pain Cardiovascular: Reports: No Symptoms Endocrine: Reports: No Symptoms GI/Abdominal: Reports: No Symptoms : Reports: No Symptoms Neurological: Reports: No Symptoms ED EXAM, GENERAL - Physical Exam Exam: See Below Exam Limited By: No Limitations General Appearance: Alert, No Apparent Distress, Obese Nose: Other (Mild congestion) Head: Atraumatic, Normocephalic Neck: Normal Inspection, Supple, Non-Tender, Full Range of Motion Respiratory/Chest: No Respiratory Distress, Lungs Clear, Normal Breath Sounds Cardiovascular: Regular Rate, Rhythm, No Edema, No Murmur GI/Abdominal: Normal Bowel Sounds, Soft, Non-Tender, No Distention, Other (Obese) Back Exam: Normal Inspection Course - Vital Signs Last Recorded V/S: Last Vital Signs Temp 36.9 C 11/19/19 00:59 Pulse 90 11/19/19 00:59 Resp 20 11/19/19 00:59 BP 113/86 11/19/19 00:59 Pulse Ox 99 11/19/19 01:42 - Orders/Labs/Meds Orders: Active Orders 24 hr Category Date Time Status RT Aerosol Therapy [RC] ASDIRECTED Care 11/19/19 01:28 Active Chest 2V [CR] Stat Exams 11/19/19 01:30 Taken Head wo Cont [CT] Stat Exams 11/19/19 01:54 Taken DRUG SCREEN, URINE [URCHEM] Stat Lab 11/19/19 01:49 Ordered UA RFX LIZBETH AND CULT IF INDIC [URIN] Stat Lab 11/19/19 01:49 Ordered Lactated Ringers [Ringers, Lactated] 1,000 ml Med 11/19/19 02:00 Active IV ASDIRECTED Medication Orders Lactated Ringer's (Ringers, Lactated) 1,000 mls @ 125 mls/hr IV ASDIRECTED REMI Labs: Laboratory Tests 11/19/19 11/19/19 11/19/19 Range/Units 01:52 01:52 01:52 WBC 12.47 H (3.98-10.04) K/mm3 RBC 4.55 (3.98-5.22) M/mm3 Hgb 12.3 (11.2-15.7) gm/dl Hct 38.9 (34.1-44.9) % MCV 85.5 (79.4-94.8) fl MCH 27.0 (25.6-32.2) pg MCHC 31.6 L (32.2-35.5) g/dl RDW Std Deviation 43.8 (36.4-46.3) fL Plt Count 296 (182-369) K/mm3 MPV 10.2 (9.4-12.3) fl Neut % (Auto) 73.9 H (34.0-71.1) % Lymph % (Auto) 18.5 L (19.3-51.7) % Milam % (Auto) 6.7 (4.7-12.5) % Eos % (Auto) 0.4 L (0.7-5.8) Baso % (Auto) 0.1 (0.1-1.2) % Neut # (Auto) 9.21 H (1.56-6.13) K/mm3 Lymph # (Auto) 2.31 (1.18-3.74) K/mm3 Milam # (Auto) 0.84 H (0.24-0.36) K/mm3 Eos # (Auto) 0.05 (0.04-0.36) K/mm3 Baso # (Auto) 0.01 (0.01-0.08) K/mm3 Sodium 142 (136-145) mEq/L Potassium 2.8 L (3.5-5.1) mEq/L Chloride 105 (98-107) mEq/L Carbon Dioxide 23 (21-32) mEq/L Anion Gap 16.8 H (5-15) BUN 8 (7-18) mg/dL Creatinine 0.8 (0.55-1.02) mg/dL Est Cr Clr Drug Dosing 98.41 mL/min Estimated GFR (MDRD) > 60 (>60) mL/min BUN/Creatinine Ratio 10.0 L (14-18) Glucose 139 H (74-106) mg/dL Calcium 9.2 (8.5-10.1) mg/dL Total Bilirubin 0.2 (0.2-1.0) mg/dL AST 12 L (15-37) U/L ALT 28 (14-59) U/L Alkaline Phosphatase 71 (46-116) U/L Total Protein 7.4 (6.4-8.2) g/dl Albumin 3.6 (3.4-5.0) g/dl Globulin 3.8 gm/dL Albumin/Globulin Ratio 1.0 (1-2) HCG, Qual Negative (NEGATIVE) Ethyl Alcohol 0.00 (0.00) gm% Meds: Medications Generic Name Dose Route Start Last Admin Trade Name Freq PRN Reason Stop Dose Admin Lactated Ringer's 1,000 mls @ 125 mls/hr 11/19/19 02:00 Ringers, Lactated IV ASDIRECTED REMI Discontinued Medications Generic Name Dose Route Start Last Admin Trade Name Mark PRN Reason Stop Dose Admin Albuterol/Ipratropium 3 ml 11/19/19 01:27 11/19/19 01:40 Duoneb 3.0-0.5 Mg/3 Ml NEB 11/19/19 01:28 3 ml ONETIME ONE Administration Lorazepam Confirm 11/19/19 01:47 11/19/19 01:52 Ativan Administered 11/19/19 01:48 Not Given Dose 2 mg .ROUTE .STK-MED ONE Lorazepam 1 mg 11/19/19 01:51 11/19/19 01:53 Ativan IM 11/19/19 01:52 Not Given ONETIME ONE Lorazepam 1 mg 11/19/19 01:51 11/19/19 01:52 Ativan IM 11/19/19 01:52 1 mg ONETIME ONE Administration Lorazepam Confirm 11/19/19 02:38 11/19/19 02:47 Ativan Administered 11/19/19 02:39 Not Given Dose 2 mg .ROUTE .STK-MED ONE Prednisone 20 mg 11/19/19 01:27 11/19/19 03:34 Prednisone PO 11/19/19 01:28 Not Given ONETIME ONE Prednisone 60 mg 11/19/19 01:29 11/19/19 02:03 Prednisone PO 11/19/19 01:30 60 mg ONETIME ONE Administration - Re-Assessments/Exams Free Text/Narrative Re-Assessment/Exam: 11/19/19 04:45 She is doing well when I was not convinced these were pseudoseizures I did order a head CT and some labs. Head CT with was negative for any acute changes ventricles might be slightly enlarged. Labs unrevealing. Chest x-ray does not show any acute changes. At this point will increase her prednisone to 30 mg twice a day. Apparently the patient used to be on Advair we will give her prescription for this and I recommended she follow-up in the hospital clinic this next week. I believe the patient is having pseudoseizures however she needs to talk this over with the primary care provider for further evaluation and treatment Departure - Departure Time of Disposition: 04:48 Disposition: Home, Self-Care 01 Clinical Impression: Pseudoseizures Asthma Qualifiers: Asthma severity: mild persistent Asthma complication type: uncomplicated Qualified Code(s): J45.30 - Mild persistent asthma, uncomplicated - Discharge Information Prescriptions: Fluticasone/Salmeterol [Advair HFA 115-21 MCG] 2 puff INH BID #1 inhaler predniSONE [Prednisone] 10 mg PO Q12H #10 tablet Instructions: Asthma, Adult, Non-Epileptic Seizures, Adult Referrals: Pia Radford MD [Primary Care Provider] - Forms: ED Department Discharge, ED Return to Work/School Form Additional Instructions: Return to the emergency room with any questions problems or worsening symptoms We have increased your prednisone from 20 mg twice a day to 30 mg twice a day take the additional 10 mg tablet with the 20 mg tablets until all gone. Use your rescue inhaler as you have been doing You have been given a prescription for Advair use this 2 puffs twice a day be sure and rinse your mouth out really good after using it. Follow-up in the hospital clinic this next week for recheck they are the ones best to make adjustments to your medications. Sepsis Event Note (ED) - Evaluation Sepsis Screening Result: No Definite Risk - Focused Exam Vital Signs: Vital Signs Temp Pulse Resp BP Pulse Ox Pulse Ox 11/19/19 01:42 99 11/19/19 00:59 36.9 C 90 20 113/86 96 - My Orders Last 24 Hours: My Active Orders 11/19/19 01:28 RT Aerosol Therapy [RC] ASDIRECTED 11/19/19 01:30 Chest 2V [CR] Stat 11/19/19 01:49 DRUG SCREEN, URINE [URCHEM] Stat UA RFX LIZBETH AND CULT IF INDIC [URIN] Stat 11/19/19 01:54 Head wo Cont [CT] Stat 11/19/19 02:00 Lactated Ringers [Ringers, Lactated] 1,000 ml IV ASDIRECTED - Assessment/Plan Last 24 Hours: My Active Orders 11/19/19 01:28 RT Aerosol Therapy [RC] ASDIRECTED 11/19/19 01:30 Chest 2V [CR] Stat 11/19/19 01:49 DRUG SCREEN, URINE [URCHEM] Stat UA RFX LIZBETH AND CULT IF INDIC [URIN] Stat 11/19/19 01:54 Head wo Cont [CT] Stat 11/19/19 02:00 Lactated Ringers [Ringers, Lactated] 1,000 ml IV ASDIRECTED
[2019-11-19] MEDS ORDERED: LORazepam 2 MG/ML SDV IM ONE ×2 (01:51)
[2019-11-19] MEDS ORDERED: Lactated Ringers 1,000 ML IV SCH (02:00)
--- NOTE | 2019-11-19 09:43 | CT ---
Head CT Technique: Multiple axial sections through the brain were obtained. Intravenous contrast was not utilized. Comparison: No prior intracranial imaging is available. Findings: Ventricles along with basal cisterns and sulci over the convexities are within normal limits for the patient's age. No abnormal parenchymal densities are seen. No evidence of intracranial hemorrhage. No midline shift or mass-effect is seen. No acute calvarial finding is appreciated. Visualized paranasal sinuses and mastoid sinuses show nothing acute. Impression: 1. Nothing acute is appreciated on noncontrast head CT exam. Diagnostic code #1 This report was dictated in MDT I agree with preliminary report from [facility], finalized on 11/19/19, 3:43 AM Central Daylight Time
--- NOTE | 2019-11-19 09:43 | CR ---
Chest: 2 views of the chest were obtained. Comparison: Prior chest x-ray of 11/03/19. Heart size and mediastinum are within normal limits for AP technique. Lungs are clear with no acute parenchymal change. Bony structures appear within normal limits for the patient's age. Impression: 1. Nothing acute is seen on 2 view chest x-ray. Diagnostic code #1 This report was dictated in MDT
== END 2019-11-19 05:32 | disposition home or self-care (01) ==
LOC: JD.ED 00:51
DX: J45.30 Mild persistent asthma, uncomplicated (principal); F44.5 Conversion disorder with seizures or convulsions; F41.9 Anxiety disorder, unspecified; F32.9 Major depressive disorder, single episode, unspecified; E03.9 Hypothyroidism, unspecified; E66.9 Obesity, unspecified; Z68.30 Body mass index [BMI] 30.0-30.9, adult; Z88.8 Allergy status to other drugs, medicaments and biological substances; Z79.899 Other long term (current) drug therapy
CPT/HCPCS: 36415; 70450; 71046; 80053; 80307; 84703; 85025; 94640; 96372; 99285; J2060; J7512; 90471; 99284; J7620-GY

== ENCOUNTER 2019-12-03 20:51 | Emergency (ER) | payer MEDICAID ==
[2019-12-03 20:57] VITALS: BP 116/75; PULSE 102
--- NOTE | 2019-12-03 21:40 | EDM.PDOC ---
ED HPI GENERAL MEDICAL PROBLEM - General Chief Complaint: ENT Problem Stated Complaint: THROAT SWOLLEN/CAN'T SWALLOW Time Seen by Provider: 12/03/19 21:26 Source of Information: Reports: Patient, RN Notes Reviewed History Limitations: Reports: No Limitations - History of Present Illness INITIAL COMMENTS - FREE TEXT/NARRATIVE: Patient is a 24-year-old female who presents to the ED for evaluation of throat pain and throat swelling. Patient notes this is been going on for a couple of months, but over the last 2 weeks seems to have been getting worse. She denies any fevers or chills, but states she has been having some issues with it being painful to swallow. Her significant other in the room mentioned that she "turned blue when she was eating pizza earlier". She is not in any respiratory distress at this moment, O2 sats are 95 to 96% on room air. Patient does have a history of asthma, and states she did take her inhaler this morning. Other than this patient denies any sort of cough/shortness of breath, fever/chills, nausea/vomiting/diarrhea. Patient states she has been tested for coronavirus and this was negative. She does not relate the timeline on this however. Patient states that she does have an appointment with primary care on Tuesday for further evaluation. - Related Data Allergies Allergy/AdvReac Type Severity Reaction Status Date / Time methylprednisolone Allergy Severe Difficulty Verified 12/03/19 20:56 Breathing Home Meds: Home Meds Levothyroxine [Synthroid] 50 mcg PO DAILY 10/21/17 [History] Sucralfate [Carafate] 1 gram PO TID 11/03/19 [History] LORazepam [Ativan] 1 mg PO TID 11/06/19 [History] Famotidine 20 mg PO Q12H #30 tablet 11/07/19 [Rx] Pantoprazole Sodium [Protonix] 40 mg PO Q24H #30 tablet. 11/07/19 [Rx] Sucralfate [Carafate] 1 gm PO ASDIRECTED #24 tablet 11/07/19 [Rx] Albuterol [Ventolin HFA] 2 puff INH Q3H PRN #1 inhaler 11/18/19 [Rx] predniSONE [Prednisone] 20 mg PO BID #12 tablet 11/18/19 [Rx] Fluticasone/Salmeterol [Advair HFA 115-21 MCG] 2 puff INH BID #1 inhaler 11/19/19 [Rx] predniSONE [Prednisone] 10 mg PO Q12H #10 tablet 11/19/19 [Rx] Past Medical History Cardiovascular History: Reports: Other (See Below) Other Cardiovascular History: HYPOTENSION, VSD Respiratory History: Reports: Asthma Other Respiratory History: uses rescue inhaler Gastrointestinal History: Reports: Other (See Below) Other Gastrointestinal History: ulcers 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: Reports: Fracture Psychiatric History: Reports: Anxiety, Depression, PTSD Endocrine/Metabolic History: Reports: Hypothyroidism, Obesity/BMI 30+, Other (See Below) Other Endocrine/Metabolic History: borderline diabetes Dermatologic History: Reports: Eczema - Past Surgical History HEENT Surgical History: Reports: Tonsillectomy Female Surgical History: Reports: Other (See Below) Social & Family History - Family History Family Medical History: Noncontributory HEENT: Reports: Glaucoma Cardiac: Reports: Heart Failure, Hypertension Respiratory: Reports: Asthma, COPD OBGYN: Reports: Other OBGYN Family History: mother had preeclampsia Neurological: Reports: CVA, Migraines Endocrine/Metabolic: Reports: Diabetes, type II, Hypothyroidism Oncologic: Reports: Breast - Tobacco Use Smoking Status *Q: Never Smoker - Caffeine Use Caffeine Use: Reports: None Caffeine Use Comment: rare - Recreational Drug Use Recreational Drug Use: No - Living Situation & Occupation Living situation: Reports: Single, Other (with friends) Occupation: Employed ([employer]) ED ROS ENT - Review of Systems Review Of Systems: Comprehensive ROS is negative, except as noted in HPI. ED EXAM, ENT - Physical Exam Exam: See Below Exam Limited By: No Limitations General Appearance: Alert, WD/WN, No Apparent Distress Eye Exam: Bilateral Eye: EOMI, Normal Inspection, PERRL Ears: Normal External Exam Nose: Normal Inspection Mouth/Throat: Normal Inspection, Normal Gums, Normal Lips, Normal Oropharynx, Normal Teeth Head: Atraumatic Neck: Normal Inspection, Supple, Non-Tender, Full Range of Motion Respiratory/Chest: No Respiratory Distress, Lungs Clear, Normal Breath Sounds, No Accessory Muscle Use, Chest Non-Tender Cardiovascular: Normal Peripheral Pulses, Regular Rate, Rhythm, No Murmur GI/Abdominal: Normal Bowel Sounds, Soft, Non-Tender, No Distention, No Mass Extremities: Normal Inspection, Normal Capillary Refill Neurological: Alert, Oriented, Normal Cognition, No Motor/Sensory Deficits Psychiatric: Normal Affect, Normal Mood Skin: Warm, Dry, Intact, Normal Color, No Rash Course - Vital Signs Last Recorded V/S: Last Vital Signs Temp 97 F 12/03/19 20:56 Pulse 102 H 12/03/19 20:56 Resp 16 12/03/19 20:56 BP 116/75 12/03/19 20:56 Pulse Ox 95 12/03/19 20:56 - Orders/Labs/Meds Orders: Active Orders 24 hr Category Date Time Status CULTURE STREP A CONFIRMATION [RM] Stat Lab 12/03/19 21:34 Results STREP SCRN A RAPID W CULT CONF [RM] Stat Lab 12/03/19 21:26 Ordered - Re-Assessments/Exams Free Text/Narrative Re-Assessment/Exam: 12/03/19 21:38 Patient states that her throat feels like it swelling, however she is not in any respiratory distress, and on physical exam, there is no obvious throat swelling Physical exam is benign, but she will be swabbed for strep at this time, and I will have her follow-up with her provider on Tuesday for further evaluation. Patient is okay with this plan at this time. 12/03/19 22:03 Strep screen was negative. Patient be discharged home with general recommendations. Departure - Departure Time of Disposition: 21:39 Disposition: Home, Self-Care 01 Condition: Good Clinical Impression: Sensation of swollen throat - Discharge Information *PRESCRIPTION DRUG MONITORING PROGRAM REVIEWED*: No *COPY OF PRESCRIPTION DRUG MONITORING REPORT IN PATIENT CONRADO: No Referrals: Marck Pennington MD [Primary Care Provider] - Forms: ED Department Discharge Additional Instructions: You were evaluated in the ER today regarding your sensation of your swollen throat. A strep swab was obtained at time of exam today, and this was negative at today's visit this will be sent for culture however, as rapid strep screen is not a perfect test, you will be called and made notified if you should need antibiotics. This will be within the next 24 to 48 hours. Recommend you use 600 mg ibuprofen every 6 hours as needed for further swelling relief, see if this does not help relieve some the swelling. Please keep your appointment with your primary care provider on Tuesday, for further evaluation and testing if warranted. Please return to the ER however if your symptoms seem to change or worsen. Sepsis Event Note (ED) - Evaluation Sepsis Screening Result: No Definite Risk - Focused Exam Vital Signs: Vital Signs Temp Pulse Resp BP Pulse Ox 12/03/19 20:56 97 F 102 H 16 116/75 95 - My Orders Last 24 Hours: My Active Orders 12/03/19 21:26 STREP SCRN A RAPID W CULT CONF [RM] Stat 12/03/19 21:34 CULTURE STREP A CONFIRMATION [RM] Stat - Assessment/Plan Last 24 Hours: My Active Orders 12/03/19 21:26 STREP SCRN A RAPID W CULT CONF [RM] Stat 12/03/19 21:34 CULTURE STREP A CONFIRMATION [RM] Stat
== END 2019-12-03 22:23 | disposition home or self-care (01) ==
LOC: JD.ED 20:51
DX: R09.89 Other specified symptoms and signs involving the circulatory and respiratory systems (principal); E03.9 Hypothyroidism, unspecified; F41.9 Anxiety disorder, unspecified; J45.909 Unspecified asthma, uncomplicated; E66.9 Obesity, unspecified; Z88.8 Allergy status to other drugs, medicaments and biological substances
CPT/HCPCS: 87081; 87430; 99282; 99283

== ENCOUNTER 2019-12-13 22:42 | Emergency (ER) | payer MEDICAID ==
[2019-12-13 23:07] VITALS: BP 132/71; PULSE 101
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
== END 2019-12-13 23:45 | disposition home or self-care (01) ==
LOC: JD.ED 22:42
DX: Z63.8 Other specified problems related to primary support group (principal); E11.9 Type 2 diabetes mellitus without complications; E03.9 Hypothyroidism, unspecified; J45.909 Unspecified asthma, uncomplicated; E66.9 Obesity, unspecified; Z87.891 Personal history of nicotine dependence; Z79.899 Other long term (current) drug therapy
CPT/HCPCS: 99282; 99284

== ENCOUNTER 2020-02-11 01:19 | Emergency (ER) | payer MEDICAID ==
[2020-02-11 01:31] VITALS: BP 125/91; PULSE 110
[2020-02-11] MEDS ORDERED: Albuterol/Ipratropium 3.0-0.5 MG/3 ML Neb Soln NEB ONE (01:57)
[2020-02-11] MEDS ORDERED: predniSONE 20 MG Tab PO STA (01:59)
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
--- NOTE | 2020-02-11 06:48 | CR ---
Chest: 2 views of the chest were obtained. Comparison: Prior chest x-ray of 11/19/19. Heart size and mediastinum are normal. Lungs are clear with no acute parenchymal change. No discrete osseous abnormality is appreciated. Impression: 1. Nothing acute is appreciated on 2 view chest x-ray. Diagnostic code #1 This report was dictated in MDT
== END 2020-02-11 04:14 | disposition home or self-care (01) ==
LOC: JD.ED 01:19
DX: J45.901 Unspecified asthma with (acute) exacerbation (principal); E03.9 Hypothyroidism, unspecified; E66.9 Obesity, unspecified; Z87.891 Personal history of nicotine dependence; Z20.828 Contact with and (suspected) exposure to other viral communicable diseases; Z88.8 Allergy status to other drugs, medicaments and biological substances; Z79.899 Other long term (current) drug therapy
CPT/HCPCS: 71046; 87635; 99285; J7512; 99283; J7620-GY; U0002

== ENCOUNTER 2020-02-23 14:40 | Emergency (ER) | payer MEDICAID ==
--- NOTE | 2020-02-23 15:29 | EDM.PDOC ---
ED HPI GENERAL MEDICAL PROBLEM - General Chief Complaint: Respiratory Problem Stated Complaint: ASTHMA Time Seen by Provider: 02/23/20 14:53 Source of Information: Reports: Patient History Limitations: Reports: No Limitations - History of Present Illness INITIAL COMMENTS - FREE TEXT/NARRATIVE: Patient is a 24-year-old female presenting to the emergency department with complaints of worsening of asthma symptoms. She states she is been having problems over the last couple months, however this last week she feels that it is worse. She was recently changed to a Spiriva inhaler by her primary care provider, however states that she does not think this is helping. She also has an albuterol rescue inhaler, however she has not used it since this morning. Patient states that she was seen at the walk-in clinic prior to coming here and that the doctor told her that her lungs were clear, however the nurse said that she was wheezy and should come to the emergency department. She denies fever, chills, or a significant cough. - Related Data Allergies Allergy/AdvReac Type Severity Reaction Status Date / Time methylprednisolone Allergy Severe Difficulty Verified 12/03/19 20:56 Breathing Home Meds: Home Meds Levothyroxine [Synthroid] 50 mcg PO DAILY 10/21/17 [History] Sucralfate [Carafate] 1 gram PO TID 11/03/19 [History] LORazepam [Ativan] 1 mg PO TID 11/06/19 [History] Famotidine 20 mg PO Q12H #30 tablet 11/07/19 [Rx] Pantoprazole Sodium [Protonix] 40 mg PO Q24H #30 tablet. 11/07/19 [Rx] Sucralfate [Carafate] 1 gm PO ASDIRECTED #24 tablet 11/07/19 [Rx] Albuterol [Ventolin HFA] 2 puff INH Q3H PRN #1 inhaler 11/18/19 [Rx] predniSONE [Prednisone] 20 mg PO BID #12 tablet 11/18/19 [Rx] Fluticasone/Salmeterol [Advair HFA 115-21 MCG] 2 puff INH BID #1 inhaler 11/19/19 [Rx] predniSONE [Prednisone] 10 mg PO Q12H #10 tablet 11/19/19 [Rx] Albuterol [Proventil HFA] 1 - 2 inhalation INH ASDIRECTED PRN #1 mdi 02/11/20 [Rx] Tiotropium [Spiriva HandiHaler] 1 inh INH DAILY 02/23/20 [History] predniSONE [Prednisone] 20 mg PO ASDIRECTED #15 tablet 02/23/20 [Rx] Past Medical History - Past Health History Medical/Surgical History: Denies Medical/Surgical History Cardiovascular History: Reports: Other (See Below) Other Cardiovascular History: HYPOTENSION, VSD Respiratory History: Reports: Asthma Other Respiratory History: uses rescue inhaler Gastrointestinal History: Reports: Other (See Below) Other Gastrointestinal History: ulcers 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: Musculoskeletal History: Reports: Fracture Neurological History: Reports: None Psychiatric History: Reports: Depression, PTSD Endocrine/Metabolic History: Reports: Hypothyroidism, Obesity/BMI 30+, Other (See Below) Other Endocrine/Metabolic History: borderline diabetes Hematologic History: Reports: None Immunologic History: Reports: None Oncologic (Cancer) History: Reports: None Dermatologic History: Reports: Eczema - Infectious Disease History Infectious Disease History: Reports: None - Past Surgical History Head Surgeries/Procedures: Reports: None HEENT Surgical History: Reports: Adenoidectomy, Tonsillectomy Cardiovascular Surgical History: Reports: Other (See Below) Female Surgical History: Reports: Section, Other (See Below) Social & Family History - Family History Family Medical History: Noncontributory HEENT: Reports: Glaucoma Cardiac: Reports: Heart Failure, Hypertension Respiratory: Reports: Asthma, COPD OBGYN: Reports: Other OBGYN Family History: mother had preeclampsia Neurological: Reports: CVA, Migraines Endocrine/Metabolic: Reports: Diabetes, type II, Hypothyroidism Oncologic: Reports: Breast - Tobacco Use Smoking Status *Q: Never Smoker - Caffeine Use Caffeine Use: Reports: Coffee Caffeine Use Comment: rare - Recreational Drug Use Recreational Drug Use: No - Living Situation & Occupation Living situation: Reports: Single, Alone Occupation: Unemployed ED ROS GENERAL - Review of Systems Review Of Systems: See Below Constitutional: Reports: No Symptoms. Denies: Fever, Chills, Weakness HEENT: Reports: No Symptoms Respiratory: Reports: Shortness of Breath, Wheezing. Denies: Cough Cardiovascular: Reports: No Symptoms Endocrine: Reports: No Symptoms GI/Abdominal: Reports: No Symptoms : Reports: No Symptoms Musculoskeletal: Reports: No Symptoms Skin: Reports: No Symptoms Neurological: Reports: No Symptoms Psychiatric: Reports: No Symptoms Hematologic/Lymphatic: Reports: No Symptoms Immunologic: Reports: No Symptoms ED EXAM, GENERAL - Physical Exam Exam: See Below General Appearance: Alert, WD/WN, No Apparent Distress Respiratory/Chest: No Respiratory Distress, Lungs Clear, No Accessory Muscle Use, Chest Non-Tender, Wheezing (Very faint expiratory wheeze) Cardiovascular: Normal Peripheral Pulses, Regular Rate, Rhythm, No Edema, No Gallop, No JVD, No Murmur, No Rub GI/Abdominal: Normal Bowel Sounds, Soft, Non-Tender, No Organomegaly, No Distention, No Abnormal Bruit, No Mass Neurological: Alert, Oriented, CN II-XII Intact, Normal Cognition, Normal Gait, Normal Reflexes, No Motor/Sensory Deficits Psychiatric: Normal Affect, Normal Mood Skin Exam: Warm, Dry, Intact, Normal Color, No Rash Course - Vital Signs Last Recorded V/S: Last Vital Signs Temp 97.9 F 02/23/20 14:53 Pulse 93 02/23/20 14:53 Resp 25 H 02/23/20 14:53 BP 111/71 02/23/20 14:53 Pulse Ox 97 02/23/20 14:53 - Orders/Labs/Meds Orders: Active Orders 24 hr Category Date Time Status Chest 1V Frontal [CR] Stat Exams 02/23/20 14:58 Taken - Re-Assessments/Exams Free Text/Narrative Re-Assessment/Exam: Patient is a 24-year-old female presenting to the emergency department with complaints of worsening of asthma symptoms over the last month, but particular over the last week. Oxygen saturations have been 98% on room air. She is not tachycardic. On exam, she has a very faint expiratory wheeze, but lungs are otherwise clear. She has not used her albuterol inhaler since this morning. Chest x-ray shows no acute abnormalities. Patient has taken prednisone in the past and done well with it. Last prescription was in October of this year. I will start on a short course of prednisone. She will take 20 mg twice daily for 5 days, followed by 20 mg once daily for 5 days. Recommend she continue to use her daily maintenance inhalers as well as her albuterol inhaler every 3-4 hours as needed. Recommend follow-up with her primary care provider next week. Discharge instructions as documented. Departure - Departure Time of Disposition: 15:27 Disposition: Home, Self-Care 01 Condition: Good Clinical Impression: Acute asthma - Discharge Information *PRESCRIPTION DRUG MONITORING PROGRAM REVIEWED*: No *COPY OF PRESCRIPTION DRUG MONITORING REPORT IN PATIENT CONRADO: No Prescriptions: predniSONE [Prednisone] 20 mg PO ASDIRECTED #15 tablet Instructions: Asthma, Adult Referrals: Shagufta Bains, PREDICTIVE MAINTENANCE TECHNICIAN [Primary Care Provider] - Forms: ED Department Discharge Additional Instructions: You were seen in the emergency department today for worsening of asthma symptoms over the last month, but particularly over the last week. Chest x-ray was completed in the emergency department and your lungs were found to be clear. On exam, he did have a faint expiratory wheeze but lungs were otherwise clear. A prescription for prednisone has been sent to [place] [facility]. Take this medication as prescribed. Continue taking your daily maintenance inhalers as well as your albuterol rescue inhaler every 3-4 hours as needed. Recommend follow-up with your primary care provider next week. Return to ER for any new or worsening symptoms of concern. Sepsis Event Note (ED) - Evaluation Sepsis Screening Result: Possible Sepsis Risk - Focused Exam Vital Signs: Vital Signs Temp Pulse Resp BP Pulse Ox 02/23/20 14:53 97.9 F 93 25 H 111/71 97 - My Orders Last 24 Hours: My Active Orders 02/23/20 14:58 Chest 1V Frontal [CR] Stat - Assessment/Plan Last 24 Hours: My Active Orders 02/23/20 14:58 Chest 1V Frontal [CR] Stat
[2020-02-23 16:07] VITALS: BP 124/75; PULSE 95
== END 2020-02-23 16:07 | disposition home or self-care (01) ==
LOC: JD.ED 14:40
DX: J45.901 Unspecified asthma with (acute) exacerbation (principal); E03.9 Hypothyroidism, unspecified; E66.9 Obesity, unspecified; Z68.38 Body mass index [BMI] 38.0-38.9, adult; Z88.8 Allergy status to other drugs, medicaments and biological substances; Z79.899 Other long term (current) drug therapy
CPT/HCPCS: 71045; 99283; 99284-25

== ENCOUNTER 2020-04-03 10:00 | Emergency (ER) | payer MEDICAID ==
[2020-04-03 10:08] VITALS: BP 109/72; PULSE 82
[2020-04-03] MEDS ORDERED: FLU VACC QS2020-21(6MOS UP)/PF 60 MCG/0.5 ML SYRINGE IM ONE (10:15)
[2020-04-03] MEDS ORDERED: Sodium Chloride 0.9% 10 ML Syringe FLUSH PRN ×2 (10:36→11:55)
[2020-04-03] MEDS ORDERED: HYDROmorphone 0.5 MG/0.5 ML Syringe IVPUSH ONE (10:36)
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
[2020-04-03] MEDS ORDERED: Iopamidol 612 MG/ML 100 ML Bottle IVPUSH ONE (11:55)
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
== END 2020-04-03 12:57 | disposition home or self-care (01) ==
LOC: JD.ED 10:00
DX: T76.21XA Adult sexual abuse, suspected, initial encounter (principal); R10.30 Lower abdominal pain, unspecified; J45.909 Unspecified asthma, uncomplicated; F32.9 Major depressive disorder, single episode, unspecified; E03.9 Hypothyroidism, unspecified; E66.9 Obesity, unspecified; Z68.36 Body mass index [BMI] 36.0-36.9, adult; Z23 Encounter for immunization; Z88.8 Allergy status to other drugs, medicaments and biological substances; Z79.899 Other long term (current) drug therapy
CPT/HCPCS: 36415; 74177; 80053; 83690; 84703; 85025; 90471; 90686; 96374; 99285; J1170; Q9967; 93010; 99284; G0008

== ENCOUNTER 2020-04-03 14:00 | Emergency (ER) | payer MEDICAID ==
[2020-04-03] MEDS ORDERED: Sodium Chloride 0.9% 10 ML Syringe FLUSH PRN (14:05)
[2020-04-03] MEDS ORDERED: Sodium Chloride 0.9% 1,000 ML IV STA (14:05)
[2020-04-03 14:09] VITALS: BP 93/63; PULSE 82
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
== END 2020-04-03 17:11 | disposition home or self-care (01) ==
LOC: JD.ED 14:00
DX: T76.21XA Adult sexual abuse, suspected, initial encounter (principal); I95.89 Other hypotension; R10.30 Lower abdominal pain, unspecified; J45.909 Unspecified asthma, uncomplicated; E03.9 Hypothyroidism, unspecified; E66.9 Obesity, unspecified; Z68.36 Body mass index [BMI] 36.0-36.9, adult; Z88.8 Allergy status to other drugs, medicaments and biological substances; Z87.891 Personal history of nicotine dependence
CPT/HCPCS: 36415; 80053; 81001; 85025; 93005; 99285; J7030

== ENCOUNTER 2020-04-23 23:00 | Emergency (ER) | payer MEDICAID ==
[2020-04-23 23:13] VITALS: BP 122/81; PULSE 102
[2020-04-23] MEDS ORDERED: Albuterol 6.7 GM Inhaler INH ONE (23:18)
[2020-04-23] MEDS ORDERED: predniSONE 10 MG Tab PO ONE (23:19)
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
--- NOTE | 2020-04-24 13:14 | CR ---
Chest: Portable view of the chest was obtained. Comparison: Prior chest x-ray of 02/11/20. Findings: Heart and mediastinum: Heart and mediastinum are within normal limits for portable technique. Lungs: Lungs are clear with no acute parenchymal change. No pleural thickening is seen. Osseous: No acute osseous findings are seen. Impression: 1. Nothing acute is appreciated on portable chest x-ray. Diagnostic code #1
== END 2020-04-24 01:09 | disposition home or self-care (01) ==
LOC: JD.ED 23:00
DX: J45.30 Mild persistent asthma, uncomplicated (principal); E03.9 Hypothyroidism, unspecified; E66.9 Obesity, unspecified; Z88.8 Allergy status to other drugs, medicaments and biological substances; Z79.899 Other long term (current) drug therapy
CPT/HCPCS: 71045; 99285; A9270; J7512; 99283

== ENCOUNTER 2020-05-09 02:54 | Emergency (ER) | payer MEDICAID ==
[2020-05-09 03:02] VITALS: BP 131/92; PULSE 78
--- NOTE | 2020-05-09 03:15 | EDM.PDOC ---
ED HPI GENERAL MEDICAL PROBLEM - General Chief Complaint: Chest Pain Stated Complaint: [facility] Time Seen by Provider: 05/09/20 03:02 Source of Information: Reports: Patient History Limitations: Reports: No Limitations - History of Present Illness INITIAL COMMENTS - FREE TEXT/NARRATIVE: Ms. Simms is a pleasant 24-year-old woman who is now brought to the ED by EMS with a complaint of central and right-sided chest pain since 23:00 tonight. The pain on her right side is sharp in character, while the pain in her sternal area is "compressing". Her pain is made worse with breathing. She also states that she had some nausea and vomiting yesterday, has been feeling hot and cold, and also lightheaded when upright. She states that she has had these same symptoms on and off for about a year, and that they are near constant over the past several weeks. She states that she spoke to her PCP about this a few weeks ago, and was told that her symptoms may be due to GERD. She was treated, although she is currently out of that medication. She states that while on it, however, her symptoms did not improve. The patient states that she took some Tylenol prior to calling EMS. Here in the ED, the patient is found to be hemodynamically stable, afebrile, saturating 99% on room air. Other than her recurrent symptoms, the patient denies having a recent fever, s ore throat, ear pain, nasal or sinus congestion, cough, dyspnea, palpitations, nausea, vomiting, constipation, diarrhea, abdominal pain, urinary symptoms, recent weight gain or weight loss, recent bloody bowel movements or black bowel movements, recent joint aches, headaches, or rashes. The patient's PCP is Shagufta Bains NP. Her Psychiatrist is Dr. Becka Carter. Her Foiling Machine Operator is Dr. Daniel Olvera. She already received an influenza vaccine this season. Chest Pain Score (Numeric/FACES): 8 - Related Data Allergies Allergy/AdvReac Type Severity Reaction Status Date / Time methylprednisolone Allergy Severe Difficulty Verified 05/09/20 02:57 Breathing Home Meds: Home Meds Levothyroxine [Synthroid] 50 mcg PO DAILY 10/21/17 [History] Sucralfate [Carafate] 1 gram PO TID 11/03/19 [History] LORazepam [Ativan] 1 mg PO TID 11/06/19 [History] Famotidine 20 mg PO Q12H #30 tablet 11/07/19 [Rx] Pantoprazole Sodium [Protonix] 40 mg PO Q24H #30 tablet. 11/07/19 [Rx] Albuterol [Ventolin HFA] 2 puff INH Q3H PRN #1 inhaler 11/18/19 [Rx] predniSONE [Prednisone] 20 mg PO BID #12 tablet 11/18/19 [Rx] Fluticasone/Salmeterol [Advair HFA 115-21 MCG] 2 puff INH BID #1 inhaler 11/19/19 [Rx] Tiotropium [Spiriva HandiHaler] 1 inh INH DAILY 02/23/20 [History] Midodrine 5 mg PO ASDIRECTED PRN 04/03/20 [History] predniSONE 10 mg PO .TAPER #24 tab 04/24/20 [Rx] Past Medical History Cardiovascular History: Reports: Other (See Below) (Congenital VSD, s/p repair at 5 mo old. RBBB.) Respiratory History: Reports: Asthma (PFT-proven) Gastrointestinal History: Reports: GERD (untreated) Psychiatric History: Reports: Depression, PTSD Endocrine/Metabolic History: Reports: Hypothyroidism, Obesity/BMI 30+, Other (See Below) (Prediabetes) Dermatologic History: Reports: Eczema - Past Surgical History HEENT Surgical History: Reports: Adenoidectomy, Myringotomy w Tube(s) (bilateral), Tonsillectomy Cardiovascular Surgical History: Reports: Other (See Below) (Congenital VSD repaired at 5 months old) Other GI Surgeries/Procedures: laparoscopy Female Surgical History: Reports: Section (x 1), Other (See Below) (Left salpingectomy) Social & Family History - Family History HEENT: Reports: Glaucoma Cardiac: Reports: Heart Failure, Hypertension Respiratory: Reports: Asthma, COPD OBGYN: Reports: Other OBGYN Family History: mother had preeclampsia Neurological: Reports: CVA, Migraines Endocrine/Metabolic: Reports: Diabetes, type II, Hypothyroidism Oncologic: Reports: Breast - Tobacco Use Years of Tobacco use: 1 Packs/Tins Daily: 0.2 Month/Year Tobacco Last Used: Quit 2018 - Caffeine Use Caffeine Use: Reports: Coffee Caffeine Use Comment: rare - Alcohol Use Alcohol Use History: Yes Alcohol Use Frequency: Rarely - Recreational Drug Use Recreational Drug Use: Yes Drug Use in Last 12 Months: No Recreational Drug Type: Reports: Marijuana/Hashish (last smoked 2017), Methamphetamine (last smoked 06/03/2016) - Living Situation & Occupation Living situation: Reports: Single, Alone Occupation: Unemployed ED ROS GENERAL - Review of Systems Review Of Systems: Comprehensive ROS is negative, except as noted in HPI. ED EXAM, GENERAL - Physical Exam Exam: See Below Exam Limited By: No Limitations General Appearance: Alert, WD/WN, No Apparent Distress Eye Exam: Bilateral Eye: EOMI, Normal Inspection Ears: Normal External Exam, Hearing Grossly Normal Nose: Normal Inspection Throat/Mouth: Normal Inspection, Normal Lips, Normal Voice, No Airway Compromise Head: Atraumatic, Normocephalic Neck: Normal Inspection, Full Range of Motion Respiratory/Chest: No Respiratory Distress, Lungs Clear, Normal Breath Sounds, No Accessory Muscle Use, Other (Reproducible tenderness to palpation of the patient's sternum - the patient jumped when palpated) Cardiovascular: Normal Peripheral Pulses, Regular Rate, Rhythm, No Gallop, No JVD, No Murmur, No Rub Peripheral Pulses: 3+: Radial (L), Radial (R) GI/Abdominal: Normal Bowel Sounds, Soft, No Organomegaly, No Distention, No Abnormal Bruit, No Mass, Tender (Mild, generalized tenderness that the patient states is chronic and part of her presentation) Back Exam: Normal Inspection, Full Range of Motion, NT Extremities: Normal Inspection, Normal Range of Motion, Normal Capillary Refill Neurological: Alert, Oriented, Normal Cognition, No Motor/Sensory Deficits Psychiatric: Normal Affect Skin Exam: Warm, Dry, Intact, Normal Color, No Rash Course - Vital Signs Last Recorded V/S: Last Vital Signs Temp 36.2 C 05/09/20 02:59 Pulse 78 05/09/20 02:59 Resp 16 05/09/20 02:59 BP 131/92 H 05/09/20 02:59 Pulse Ox 99 05/09/20 02:59 Orthostatic Blood Pressure [ 129/89 Standing] Orthostatic Blood Pressure [ 126/87 Supine] - Orders/Labs/Meds Orders: Active Orders 24 hr Category Date Time Status Orthostatic Vital Signs [RC] STAT Care 05/09/20 03:09 Active Chest 2V [CR] Stat Exams 05/09/20 03:09 Taken Labs: Laboratory Tests 05/09/20 05/09/20 05/09/20 Range/Units 03:23 03:23 03:23 WBC 8.69 (3.98-10.04) K/mm3 RBC 4.94 (3.98-5.22) M/mm3 Hgb 13.6 (11.2-15.7) gm/dl Hct 43.0 (34.1-44.9) % MCV 87.0 (79.4-94.8) fl MCH 27.5 (25.6-32.2) pg MCHC 31.6 L (32.2-35.5) g/dl RDW Std Deviation 45.8 (36.4-46.3) fL Plt Count 289 (182-369) K/mm3 MPV 10.0 (9.4-12.3) fl Neutrophils % (Manual) 63 H (40-60) % Band Neutrophils % 0 (0-10) % Lymphocytes % (Manual) 30 (20-40) % Atypical Lymphs % 0 % Monocytes % (Manual) 7 (2-10) % Eosinophils % (Manual) 0 L (0.7-5.8) % Basophils % (Manual) 0 L (0.1-1.2) Platelet Estimate Adequate RBC Morph Comment Normal D-Dimer, Quantitative 0.74 H (0.19-0.50) mg/L Sodium 140 (136-145) mEq/L Potassium 3.8 (3.5-5.1) mEq/L Chloride 106 (98-107) mEq/L Carbon Dioxide 25 (21-32) mEq/L Anion Gap 12.8 (5-15) BUN 6 L (7-18) mg/dL Creatinine 0.8 (0.55-1.02) mg/dL Est Cr Clr Drug Dosing 78.56 mL/min Estimated GFR (MDRD) > 60 (>60) mL/min BUN/Creatinine Ratio 7.5 L (14-18) Glucose 79 (74-106) mg/dL Calcium 9.7 (8.5-10.1) mg/dL Magnesium 2.1 (1.8-2.4) mg/dl Total Bilirubin 0.2 (0.2-1.0) mg/dL AST 15 (15-37) U/L ALT 39 (14-59) U/L Alkaline Phosphatase 66 (46-116) U/L C-Reactive Protein 1.5 H* (<1.0) mg/dL Total Protein 7.2 (6.4-8.2) g/dl Albumin 3.5 (3.4-5.0) g/dl Globulin 3.7 gm/dL Albumin/Globulin Ratio 1.0 (1-2) - Re-Assessments/Exams Free Text/Narrative Re-Assessment/Exam: 05/09/20 03:11 The patient's pain is reproducible with palpation of her chest and abdomen, indicating a musculoskeletal etiology, however, I have ordered a work-up to rule out any other obvious etiologies, including orthostatics, several blood tests, and a chest x-ray. 05/09/20 04:13 Two-view chest radiograph reviewed. Poor inspiratory effort. The cardiac silhouette is within normal limits. No pulmonary vascular congestion. No pleural effusions. No focal infiltrate. No pneumothorax. Formal read per the Radiologist pending. The patient's CBC, CMP, and magnesium level are all within normal limits. Her D-dimer is slightly elevated at 0.74, and her CRP is slightly elevated at 1.5. 05/09/20 04:22 The patient is not orthostatic. 05/09/20 04:24 Test results discussed with the patient. As above, today's work-up is unremarkable. Her symptoms appear to be musculoskeletal in etiology. I recommended that she take [id number] Tylenol or ibuprofen, and if her symptoms persist, to follow-up with her PCP. Departure - Departure Time of Disposition: 04:24 Disposition: Home, Self-Care 01 Condition: Good Clinical Impression: Musculoskeletal chest pain - Discharge Information *PRESCRIPTION DRUG MONITORING PROGRAM REVIEWED*: Not Applicable *COPY OF PRESCRIPTION DRUG MONITORING REPORT IN PATIENT CONRADO: Not Applicable Instructions: Nonspecific Chest Pain, Adult, [id number] Referrals: Shagufta Bains NP [Primary Care Provider] - Becka Carter MD [Ordering Only Provider] - Daniel Olvera DO [Ordering Only Provider] - Forms: ED Department Discharge Additional Instructions: You were seen in the emergency room for recurrent chest pain, along with some nausea and vomiting, feeling hot and cold, and feeling lightheaded when upright. Work-up in the ER included positional blood pressure checks, several blood tests, and a chest x-ray. Your entire work-up was unremarkable. You do not have pneumonia. You do not have a collapsed lung. You do not have a blood clot in your lungs. You are not anemic. No significant electrolyte abnormalities were found. Based on your history, physical exam, and ER tests, the cause of your symptoms is most likely musculoskeletal. We recommend that you take [id number] Tylenol or ibuprofen as needed for discomfort. If your symptoms persist, please follow-up with your PCP, Shagufta Bains NP. If any other problems, please do not hesitate to return to the ER. Sepsis Event Note (ED) - Evaluation Sepsis Screening Result: No Definite Risk - Focused Exam Vital Signs: Vital Signs Temp Pulse Resp BP Pulse Ox 05/09/20 02:59 36.2 C 78 16 131/92 H 99 - My Orders Last 24 Hours: My Active Orders 05/09/20 03:09 Orthostatic Vital Signs [RC] STAT Chest 2V [CR] Stat - Assessment/Plan Last 24 Hours: My Active Orders 05/09/20 03:09 Orthostatic Vital Signs [RC] STAT Chest 2V [CR] Stat
--- NOTE | 2020-05-09 09:08 | CR ---
Chest: 2 views of the chest were obtained. Comparison: Prior portable chest x-ray of 04/23/20. Heart size is felt to be within normal limits for technique. Upper mediastinum is normal. Lungs are clear with no acute parenchymal change. Bony structures are unremarkable. Impression: 1. Nothing acute is seen on 2 view chest x-ray. Diagnostic code #1
== END 2020-05-09 05:00 | disposition home or self-care (01) ==
LOC: SUPCPDRO 02:54 → JD.ED 02:54
DX: R07.89 Other chest pain (principal); J45.909 Unspecified asthma, uncomplicated; K21.9 Gastro-esophageal reflux disease without esophagitis; E03.9 Hypothyroidism, unspecified; F17.210 Nicotine dependence, cigarettes, uncomplicated; E66.9 Obesity, unspecified; Z68.36 Body mass index [BMI] 36.0-36.9, adult; Z88.8 Allergy status to other drugs, medicaments and biological substances; Z79.899 Other long term (current) drug therapy
CPT/HCPCS: 36415; 71046; 71046-26; 80053; 83735; 85007; 85027; 85379; 86140; 99283; 99285-25

== ENCOUNTER 2020-05-24 18:41 | Emergency (ER) | payer MEDICAID ==
[2020-05-24 18:47] VITALS: BP 105/59; PULSE 96
[2020-05-24] MEDS ORDERED: Ondansetron 4 MG/2 ML SDV IVPUSH ONE (18:58)
[2020-05-24] MEDS ORDERED: HYDROmorphone 1 MG/ML Syringe IVPUSH STA (18:58)
[2020-05-24] MEDS ORDERED: Sodium Chloride 0.9% 10 ML Syringe FLUSH PRN (18:59)
[2020-05-24] MEDS ORDERED: Sodium Chloride 0.9% 1,000 ML IV SCH (19:00)
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
[2020-05-24] MEDS ORDERED: Ketorolac 30 MG/ML SDV IVPUSH ONE (20:34)
[2020-05-24] MEDS ORDERED: Alum Hydrox/Mag Hydrox/Simeth 30 ML, Lidocaine 2% 15 ML PO ONE ×2 (21:06)
[2020-05-24] MEDS ORDERED: Iopamidol 612 MG/ML 100 ML Bottle IVPUSH ONE (21:58)
[2020-05-24] MEDS ORDERED: Sodium Chloride 0.9% 100 ML IV SCH (22:00)
[2020-05-24] MEDS ORDERED: Ondansetron 4 MG Tab.DIS PO ONE (22:26)
[2020-05-24] MEDS ORDERED: Acetaminophen/HYDROcodone 325-5 MG Tab PO ONE (22:27)
--- NOTE | 2020-05-25 09:45 | CT ---
CT abdomen and pelvis Technique: Multiple axial sections were obtained from above the dome of the diaphragm inferiorly through the pubic symphysis. Intravenous contrast was utilized. No oral contrast has been given. Delayed images were obtained through the abdomen and pelvis. Reconstructed coronal and sagittal images were obtained. Comparison: Prior CT abdomen and pelvis of 10/24/19 and abdominal ultrasound of 05/22/20. Findings: Visualized lung bases show nothing acute. Liver contains no focal abnormality. Spleen shows several small calcifications compatible with pre-existing granulomatous disease. Adrenal glands show no nodule. No abnormality is identified within the pancreas. Gallbladder contains no calcified gallstones. Kidneys show symmetric contrast enhancement. Delayed images show contrast within the collecting system and within both ureters and bladder. Aorta shows no aneurysm. No retroperitoneal adenopathy is seen. No aneurysm is seen. Small fat-containing umbilical hernia is noted. Appendix is felt to be visualized and normal in size. No pelvic mass or adenopathy is identified. No free fluid or inflammatory change is appreciated. Bone window settings were reviewed which show no acute osseous finding. Impression: 1. Nothing acute is appreciated on CT study of the abdomen and pelvis. 2. Findings are believed to be incidental as noted above. Diagnostic code #2 I agree with preliminary report from [facility], finalized on 05/24/20, 11:07 PM [employer]
== END 2020-05-24 22:45 | disposition home or self-care (01) ==
LOC: JD.ED 18:41
DX: R10.11 Right upper quadrant pain (principal); R11.14 Bilious vomiting; J45.909 Unspecified asthma, uncomplicated; K21.9 Gastro-esophageal reflux disease without esophagitis; E03.9 Hypothyroidism, unspecified; E66.9 Obesity, unspecified; Z68.41 Body mass index [BMI] 40.0-44.9, adult; Z88.8 Allergy status to other drugs, medicaments and biological substances
CPT/HCPCS: 36415; 74177; 80053; 81001; 81025; 82977; 83690; 85007; 85027; 87086; 87088; 96374; 96375; 99284; A9270; J1170; J1885; J2405; J7030; Q9967

== ENCOUNTER 2020-05-26 19:10 | Emergency (ER) | payer MEDICAID ==
[2020-05-26 19:15] VITALS: BP 114/83; PULSE 96
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
[2020-05-26] MEDS ORDERED: Lactated Ringers 1,000 ML IV ONE (19:40)
[2020-05-26] MEDS ORDERED: Promethazine 25 MG in Sodium Chloride 0.9% 50 ML IV ONE (19:42)
[2020-05-26] MEDS ORDERED: Potassium Chloride 20 MEQ Tab.ER PO ONE (22:00)
== END 2020-05-26 22:16 | disposition home or self-care (01) ==
LOC: JD.ED 19:10
DX: R55 Syncope and collapse (principal); J45.909 Unspecified asthma, uncomplicated; K21.9 Gastro-esophageal reflux disease without esophagitis; F32.9 Major depressive disorder, single episode, unspecified; E03.9 Hypothyroidism, unspecified; E66.9 Obesity, unspecified; Z68.41 Body mass index [BMI] 40.0-44.9, adult; Z88.8 Allergy status to other drugs, medicaments and biological substances; Z79.899 Other long term (current) drug therapy
CPT/HCPCS: 36415; 80053; 81001; 81025; 82962; 85025; 87086; 93005; 96365; 99284; A9270; J2550; J7120

== ENCOUNTER → 2020-06-12 | Day surgery (SDC) | payer MEDICAID ==
[~2020-06-12] MED LIST: Bupivacaine 0.5% 30 ML SDV ONE; HYDROmorphone 0.5 MG/0.5 ML Syringe IVPUSH ONE; HYDROmorphone 0.5 MG/0.5 ML Syringe ONE; Lactated Ringers 1,000 ML IV SCH; Lactated Ringers 1,000 ML ONE; Lidocaine 1% 4 ML ONE; Lidocaine 1%/Sod Bicarbonate in NS 8.4% 1 ML Syringe IDERM PRN; Midazolam 1 MG/ML 2 ML SDV ONE; Ondansetron 4 MG/2 ML SDV IVPUSH PRN; Propofol 200 MG/20 ML SDV ONE; Rocuronium 50 MG/5 ML Vial ONE; Sodium Chloride 0.9% 10 ML Syringe FLUSH PRN; ceFAZolin 1 GM Vial ONE; fentaNYL 100 MCG/2 ML SDV IVPUSH PRN; fentaNYL 250 MCG/5 ML SDV ONE; oxyCODONE 5 MG Tab PO SCH
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
--- NOTE | 2020-06-12 09:18 | PCM.POSTAN ---
POST ANESTHESIA ASSESSMENT - MENTAL STATUS Mental Status: Alert, Oriented - VITAL SIGNS Vital Signs: Last Vital Signs Temp 36.8 C 06/12/20 07:30 Pulse 88 06/12/20 07:30 Resp 16 06/12/20 07:30 BP 108/71 06/12/20 07:30 Pulse Ox 98 06/12/20 07:30 - RESPIRATORY Respiratory Status: Respiratory Rate WNL, Airway Patent, O2 Saturation Stable - CARDIOVASCULAR CV Status: Pulse Rate WNL, Blood Pressure Stable - GASTROINTESTINAL GI Status: No Symptoms - PAIN Pain Score: 0 - POST OP HYDRATION Hydration Status: Adequate & Stable
--- NOTE | 2020-06-12 09:35 | PCM48HPAN ---
Post Anesthesia Note - EVALUATION WITHIN 48HRS OF ANESTHETIC Vital Signs in Normal Range: Yes Patient Participated in Evaluation: Yes Respiratory Function Stable: Yes Airway Patent: Yes Cardiovascular Function Stable: Yes Hydration Status Stable: Yes Pain Control Satisfactory: Yes Nausea and Vomiting Control Satisfactory: Yes Mental Status Recovered: Yes Vital Signs: Last Vital Signs Temp 36.3 C 06/12/20 09:30 Pulse 64 06/12/20 09:30 Resp 13 06/12/20 09:30 BP 111/76 06/12/20 09:30 Pulse Ox 100 06/12/20 09:31
--- NOTE | 2020-06-12 10:35 | PCM.PRNOTE ---
- Free Text/Narrative Note: Date: 06/12/2020 Operation: diagnostic esophagogastroduodenoscopy and laparoscopic cholecystectomy Surgeon: Koby Bruno MD Findings: small hiatal hernia. Normal appearing gallbladder; critical view of safety obtained. Detailed Report: The patient was taken to the operating room and placed in supine position. General endotracheal anesthesia was initiated, and timeout was performed. The endoscope was then passed orally and advanced to the second portion of the duodenum. There appeared to be minor erythematous mucosal changes of the duodenum. Cold forceps were used to obtain a sample of duodenal mucosa. The gastric antrum appeared normal. A biopsy of antrum mucosa was obtained. The remainder of the stomach look normal. On retroflexion, there appeared to be a small sliding hiatal hernia. No significant inflammation was noted at the gastroesophageal junction. A biopsy of GE junction tissue and distal esophageal mucosa were obtained. Air was suctioned from the stomach and the scope was withdrawn. The patient tolerated this portion of the procedure well. Next the abdomen was prepped and draped in usual sterile fashion. A Veress needle was placed at the left upper quadrant in order to establish pneumoperitoneum. A 5 mm bladed trocar was then inserted at the umbilicus, and a 5 mm 30 degree laparoscope was inserted into the abdomen. Abdominal contents appeared normal. The patient was positioned in reverse Trendelenburg and rotated towards the surgeon standing on the patient's left side. Additional ports were placed at the right upper quadrant, one 5 mm port at the lateral part of the abdomen for the apartment community assistant manager, and one at the midclavicular line for the surgeon's left hand. The fundus of the gallbladder was grasped and retracted cephalad. A 12 mm bladed port was placed at the subxiphoid region. The infundibulum was grasped and retracted laterally, and dissection commenced. The cystic structures were identified, and the cystic duct and artery were skeletonized. A critical view of safety was obtained. Hemolock clips were placed on the cystic duct and cys tic artery, and the structures were transected with laparoscopic scissors. The gallbladder was then taken off the liver using hook monopolar energy. The gallbladder was then placed in an Endo Catch bag and removed through the subxiphoid port. The dissection field appeared clean and dry. A 0 Vicryl suture was used to close the larger incision at the level of fascia using a laparoscopic suture passer. Ports were removed under laparoscopic vision, and pneumoperitoneum was released. Skin incisions were closed at the level of skin with 4-0 Vicryl. All incisions were dressed with Dermabond. The patient tolerated the procedure well.
[2020-06-12 12:50] VITALS: BP 92/58; PULSE 67
== END | disposition home or self-care (01) ==
LOC: JD.SDS 07:06
PROVIDERS: ATTEND Surgery
DX: K81.1 Chronic cholecystitis (principal); K21.00 Gastro-esophageal reflux disease with esophagitis, without bleeding; K44.9 Diaphragmatic hernia without obstruction or gangrene; J45.909 Unspecified asthma, uncomplicated; E03.9 Hypothyroidism, unspecified; G47.33 Obstructive sleep apnea (adult) (pediatric); E66.01 Morbid (severe) obesity due to excess calories; Z68.38 Body mass index [BMI] 38.0-38.9, adult; Z88.8 Allergy status to other drugs, medicaments and biological substances; Z79.899 Other long term (current) drug therapy; Z98.890 Other specified postprocedural states
CPT/HCPCS: 43239; 47562; 81025; J0690; J1170; J2001; J2250; J2704; J3010; J3490; J7120; 00790

== ENCOUNTER 2020-09-16 21:45 | Emergency (ER) | payer MEDICAID ==
[2020-09-16 22:01] VITALS: BP 124/91; PULSE 98
[2020-09-16] MEDS ORDERED: Sodium Chloride 0.9% 10 ML Syringe FLUSH PRN (22:11)
[2020-09-16] MEDS ORDERED: Famotidine 20 MG/2 ML SDV IVPUSH ONE (22:11)
[2020-09-16] MEDS ORDERED: Ondansetron 4 MG/2 ML SDV IVPUSH ONE ×2 (22:11→23:54)
[2020-09-16] MEDS ORDERED: Sodium Chloride 0.9% 1,000 ML IV SCH (22:15)
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
[2020-09-16] MEDS ORDERED: Pantoprazole 40 MG Vial IVPUSH ONE (23:54)
== END 2020-09-17 01:09 | disposition home or self-care (01) ==
LOC: JD.ED 21:45
DX: R11.2 Nausea with vomiting, unspecified (principal); R42 Dizziness and giddiness; K21.9 Gastro-esophageal reflux disease without esophagitis; J45.909 Unspecified asthma, uncomplicated; E03.9 Hypothyroidism, unspecified; E66.9 Obesity, unspecified; Z68.41 Body mass index [BMI] 40.0-44.9, adult; Z79.899 Other long term (current) drug therapy; Z88.8 Allergy status to other drugs, medicaments and biological substances
CPT/HCPCS: 36415; 80053; 83690; 85025; 96374; 96375; 96376; 99284; C9113; J2405; J3490; J7030; 99283

== ENCOUNTER 2020-10-02 12:24 | Emergency (ER) | payer MEDICAID ==
[2020-10-02 12:44] VITALS: BP 103/69; PULSE 80
[2020-10-02] MEDS ORDERED: Alum Hydrox/Mag Hydrox/Simeth 30 ML, Lidocaine 2% 15 ML PO ONE ×2 (13:25)
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
[2020-10-02] MEDS ORDERED: Lidocaine 2% Viscous Solution 15 ML Cup ONE (13:55)
[2020-10-02] MEDS ORDERED: Aluminum Hydroxide/Magnesium Hydroxide/Simethicone Susp 30 ML Cup ONE (13:56)
[2020-10-02] MEDS ORDERED: Ketorolac 60 MG/2 ML SDV IM ONE (14:34)
[2020-10-02] MEDS ORDERED: Ketorolac 60 MG/2 ML SDV ONE (14:45)
--- NOTE | 2020-10-03 09:22 | CR ---
Chest: Portable view of the chest was obtained. Comparison: Prior chest x-ray of 05/09/20. Heart size and mediastinum are within normal limits for AP technique. Lungs are clear with no acute parenchymal change. No acute osseous abnormality is appreciated. Impression: 1. Nothing acute is seen on portable chest x-ray. Diagnostic code #1
== END 2020-10-02 15:15 | disposition home or self-care (01) ==
LOC: JD.ED 12:24
DX: R07.89 Other chest pain (principal); J45.909 Unspecified asthma, uncomplicated; K21.9 Gastro-esophageal reflux disease without esophagitis; E03.9 Hypothyroidism, unspecified; E66.9 Obesity, unspecified; Z88.8 Allergy status to other drugs, medicaments and biological substances; Z79.899 Other long term (current) drug therapy; Z68.39 Body mass index [BMI] 39.0-39.9, adult; Z87.891 Personal history of nicotine dependence
CPT/HCPCS: 36415; 71045; 80053; 81001; 83735; 84484; 85025; 87086; 93005; 96372; 99285; A9270; J1885; 93010; 99284

== ENCOUNTER 2020-10-05 17:30 | Emergency (ER) | payer MEDICAID ==
[2020-10-05] MEDS ORDERED: HYDROmorphone 1 MG/ML Syringe IVPUSH ONE ×2 (18:05→19:40)
[2020-10-05] MEDS ORDERED: Sodium Chloride 0.9% 10 ML Syringe FLUSH PRN (18:05)
[2020-10-05] MEDS ORDERED: Sodium Chloride 0.9% 1,000 ML IV SCH (18:15)
[2020-10-05] MEDS ORDERED: Iopamidol 755 Mg/ML 100 ML Bottle IVPUSH ONE (20:00)
[2020-10-05] MEDS ORDERED: Sodium Chloride 0.9% 10 ML Syringe FLUSH ONE (20:00)
[2020-10-05] MEDS ORDERED: Sodium Chloride 0.9% 100 ML IV SCH (20:00)
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
[2020-10-05] MEDS ORDERED: Azithromycin 250 MG Tab PO ONE (21:32)
[2020-10-05 22:42] VITALS: BP 128/88; PULSE 80
--- NOTE | 2020-10-06 06:49 | CR ---
Chest: Portable view of the chest was obtained. Comparison: Prior chest x-ray of 10/02/20. Heart size is stable from prior chest x-ray. Upper mediastinum is normal.. Lungs are clear with no acute parenchymal change. No acute osseous abnormality is appreciated. Impression: 1. No change in chest x-ray from previous study. 2. Nothing acute is seen. Diagnostic code #1
--- NOTE | 2020-10-06 07:32 | CT ---
CT chest Technique: Multiple axial sections through the chest were obtained. Intravenous contrast was utilized. Study has been performed as a pulmonary angiogram protocol. Comparison: Prior chest x-ray performed earlier on the same day, no prior chest CT is available. Findings: Pulmonary arteries are fairly well opacified. No filling defects are seen to indicate pulmonary embolism. No pericardial thickening is seen. Thoracic aorta shows no aneurysm. Soft tissue density is noted within the superior mediastinum compatible with normal thymic tissue. Visualized upper abdominal structures show nothing acute. Slight groundglass appearance is seen within the left lung base either due to minimal atelectasis or very early pneumonia if patient has infectious symptoms. Lungs otherwise are clear. Bone window settings were reviewed. No acute osseous abnormality is appreciated. Impression: 1. No findings of pulmonary embolism. 2. Minimal groundglass appearance within the left lung base either due to mild atelectasis or early pneumonia if patient has infectious symptoms. 3. No other acute abnormality is appreciated. Diagnostic code #3 I agree with preliminary report from [facility], finalized on 10/05/20, at 9:54 PM CDT, code 1
== END 2020-10-05 21:40 | disposition home or self-care (01) ==
LOC: JD.ED 17:30
DX: J18.9 Pneumonia, unspecified organism (principal); J45.909 Unspecified asthma, uncomplicated; E03.9 Hypothyroidism, unspecified; E66.9 Obesity, unspecified; Z68.30 Body mass index [BMI] 30.0-30.9, adult; Z88.8 Allergy status to other drugs, medicaments and biological substances; Z79.899 Other long term (current) drug therapy; Z68.39 Body mass index [BMI] 39.0-39.9, adult
CPT/HCPCS: 36415; 71045; 71275; 80053; 84484; 85025; 85379; 93005; 96374; 96376; 99285; A9270; J1170; J7030; Q9967; 93010; 99284

== ENCOUNTER 2020-11-02 13:28 | Emergency (ER) | payer MEDICAID ==
[2020-11-02 13:40] VITALS: BP 129/57; PULSE 90
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
[2020-11-02] MEDS ORDERED: Magnesium Citrate Solution 296 ML Bottle PO ONE (14:41)
--- NOTE | 2020-11-03 08:13 | CR ---
Abdomen: Supine and upright views of the abdomen were obtained. Comparison: No prior abdominal plain film, prior CT abdomen and pelvis study of 05/24/20 and abdominal ultrasound of 05/22/20. Phlebolith is noted within the pelvis. Bowel gas pattern appears normal. No free air is seen. No discrete soft tissue abnormality is seen. No acute osseous abnormality is appreciated. Impression: 1. Nothing acute is seen on 2 view abdominal study. Diagnostic code #1
== END 2020-11-02 15:01 | disposition home or self-care (01) ==
LOC: JD.ED 13:28
DX: K59.09 Other constipation (principal); R60.0 Localized edema; J45.909 Unspecified asthma, uncomplicated; K21.9 Gastro-esophageal reflux disease without esophagitis; E03.9 Hypothyroidism, unspecified; E66.9 Obesity, unspecified; Z68.41 Body mass index [BMI] 40.0-44.9, adult; Z88.8 Allergy status to other drugs, medicaments and biological substances
CPT/HCPCS: 36415; 74019; 80053; 83690; 85025; 99284; A9270; 99283

== ENCOUNTER 2020-11-08 19:31 | Emergency (ER) | payer MEDICAID ==
[2020-11-08 19:41] VITALS: BP 123/74; PULSE 100
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
== END 2020-11-08 21:15 | disposition home or self-care (01) ==
LOC: JD.ED 19:31
DX: S86.911A Strain of unspecified muscle(s) and tendon(s) at lower leg level, right leg, initial encounter (principal); J45.909 Unspecified asthma, uncomplicated; K21.9 Gastro-esophageal reflux disease without esophagitis; E03.9 Hypothyroidism, unspecified; E66.9 Obesity, unspecified; Z88.8 Allergy status to other drugs, medicaments and biological substances; Z79.899 Other long term (current) drug therapy; W19.XXXA Unspecified fall, initial encounter; Y92.009 Unspecified place in unspecified non-institutional (private) residence as the place of occurrence of the external cause
CPT/HCPCS: 36415; 80053; 83735; 85025; 99283